=== PATIENT | female | born 1955 | race Caucasian/White ===

== ENCOUNTER 2020-02-23 08:59 | Outpatient (CLI) | payer OTHER, SELFPAY ==
--- NOTE | 2020-02-23 11:12 | N.ONRAD NP_ITS ---
Radiation Oncology Consult Patient: Mary Ellen Vanegas MR#: [id number] : 1955 Attending Physician: Vern Hahn M.D. Date of Service: 02/23/2020 Mary Ellen Vanegas was seen in consultation this morning for evaluation regarding potential breast radiotherapy for the management of her recently diagnosed breast cancer. She presented with a palpable left breast mass. Routine screening mammograms ordered on 2019 revealed an irregular mass measuring 1.6 cm x 2.2 cm in the left upper outer quadrant of the breast. Ultrasonography confirmed in the left breast within the 12 o???clock to 1 o'clock position, a 2.1 cm x 2.2 cm x 2.1 cm spiculated mass 6 cm from the nipple. A core needle biopsy performed on January 11, 2020 diagnosed an invasive, grade I ductal carcinoma. Immunohistochemical stains were positive for estrogen receptor (99%) and progesterone receptor (100%), and negative for HER-2/rani (1+). A partial mastectomy with sentinel lymph node biopsy was performed by Richard Oliva M.D. at [facility] in [place], [place] on January 27, 2020. Pathology revealed a 2.4 cm grade II invasive ductal carcinoma with an intermediate grade ductal carcinoma in situ measuring 1.2 cm of the cribriform, micropapillary, and solid subtypes. The surgical margin of the invasive carcinoma was 3 mm while the DCIS margin was less than 1 mm. Hiram lymph node biopsy harvested one lymph node that was negative for malignancy. Re-excision was performed on February 15, 2020. The final surgical margin was negative for malignancy. The tumor demonstrated an Oncotype DX breast recurrence score of 10. The patient presents for discussion regarding adjuvant breast radiotherapy. The patient's past medical history is significant for anxiety, COPD, DVT, GERD, headache, hyperlipidemia, hypertension, hypothyroidism, obstructive sleep apnea, pseudocholinesterase deficiency, and TMJ disorder. Past surgical history includes appendectomy, colonoscopy, hysterectomy, mastoidectomy (AD), meniscectomy (left knee), and tympanostomy (AD). Her obstetrical history is . Menses began at the age of [age] years old and menopause at 48 years old. I have reviewed the patient's medication profile which is available in the electronic medical record. She described an allergy to Sanctura (a muscarinic antagonists for overactive bladder). The patient's family history was remarkable for breast cancer (maternal aunt and maternal cousin). The patient was unaccompanied to this consultation. She denied a tobacco habit (quit 2000; 1/2 pack/day for 1 year) and disavowed alcohol intake. On review of systems, she did not report any constitutional complaints including fevers of unknown origin or unintentional weight loss. There were no head neck complaints including diplopia, tinnitus, epistaxis, or dysphagia. She did not report breast complaints such as masses or nipple discharge nor any enlarged lymph nodes of the neck, armpit, or groin. She denied any cardiopulmonary symptoms such as angina, cough, or palpitations. On gastrointestinal review, she reported dyspepsia but no nausea or diarrhea. There were no genitourinary complaints such as dysuria or hematuria. She did not report any musculoskeletal complaints including bone pain or muscle weakness. There were no neurological symptoms such as headaches, paresthesias, or seizures. On physical examination, the patient has an ECOG performance status of 0. Her weight was 171 lbs. The temperature was 8.17???F. The blood pressure was 143/75 mmHg. The pulse was 65 bpm and the respiratory rate of was 18. The head was normocephalic and atraumatic. Ophthalmoscopy identified bilateral red reflexes with sharp fundi visualized. Otoscopy revealed narrow external auditory canals limiting visualization of the tympanic membranes. Rhinoscopy exhibited non-inflamed turbinates. The oral cavity had moist mucous membranes and no oropharyngeal exudate was present. Dentures were noted. There was no cervical adenopathy or thyromegaly. No dominant breast masses were palpated. A scar was present in the upper-outer quadrant of the left breast. Normal fremitus was noted with resonance to percussion elicited. Bronchovesicular breath sounds were auscultated in the posterior lung miles. Cardiac sounds were regular in rate and rhythm. A holosystolic murmur was appreciated. No JVD noted. The abdomen had active bowel sounds. No tenderness to palpation. No evidence of organomegaly. No muscle weakness upon testing. No tenderness to deep palpation along the axial skeleton. Cranial nerves II through XII were intact. No sensory deficits. Normal reflexes noted. Gait was normal. In summary, the patient presented with a palpable left breast mass. Routine screening mammograms ordered on 2019 revealed an irregular mass measuring 1.6 cm x 2.2 cm in the left upper outer quadrant of the breast. Ultrasonography confirmed in the left breast within the 12 o???clock to 1 o'clock position, a 2.1 cm x 2.2 cm x 2.1 cm spiculated mass 6 cm from the nipple. A core needle biopsy performed on January 11, 2020 diagnosed an invasive, grade I ductal carcinoma. Immunohistochemical stains were positive for estrogen receptor (99%) and progesterone receptor (100%), and negative for HER-2/rani (1+). The KI-67 was 92%. A partial mastectomy with sentinel lymph node biopsy was performed by Richard Oliva M.D. at [facility] in [place], [place] on January 27, 2020. Pathology revealed a 2.4 cm grade II invasive ductal carcinoma with an intermediate grade ductal carcinoma in situ measuring 1.2 cm of the cribriform, micropapillary, and solid subtypes. The surgical margin of the invasive carcinoma was 3 mm while the DCIS margin was less than 1 mm. Hiram lymph node biopsy harvested one lymph node that harbored metastatic disease measuring 3 mm. Re-excision was performed on February 15, 2020. The final surgical margin was negative for malignancy. The tumor demonstrated an Oncotype DX Breast Recurrence Score of 10. The patient presents for discussion regarding adjuvant breast radiotherapy. I reviewed with the patient her AJCC initial pathological stage IIA (T2N1a) breast cancer. I also discussed the classic study by NSABP comparing mastectomy, lumpectomy, and lumpectomy with radiotherapy and the Early Breast Cancer Trialist Collaborative Group meta-analysis. She is aware that the addition of radiotherapy to lumpectomy provides improvement in local control and overall survival. I anticipate a five week course of breast and axillary radiotherapy which will be implemented following CT radiotherapy treatment planning. Toxicity of breast radiotherapy was also addressed. The patient has verbalized understanding would like to proceed as recommended. Signed by: Dr. Vern Hahn 03/29/2020 3:59:00 PM
[2020-02-23 12:05] LABS: Basophils # 0.1 10^3/uL (0.0-0.1); Eosinophils # 0.1 10^3/uL (0.0-0.8); Eosinophils % 1.4 %; Hematocrit 38.7 % (37.0-47.0); Hemoglobin 12.7 g/dL (11.5-15.3); Lymphocytes # 1.2 10^3/uL (0.8-4.8); Lymphocytes % 23.8 %; Mean Corpuscular HGB Conc 32.8 g/dL (30.0-36.0); Mean Corpuscular Hemoglobin 29.9 pg (28.0-34.0); Mean Corpuscular Volume 91.1 fL (81-99); Mean Platelet Volume 11.6 fL (7.4-10.4); Monocytes # 0.2 10^3/uL (0.2-0.9); Monocytes % 4.7 %; Neutrophils # 3.47 10^3/uL (1.8-7.7); Neutrophils % 67.7 %; Nucleated Red Blood Cells % 0 %; Platelet Count 225 10^3/cmm (130-400); Red Blood Count 4.25 10^6/uL (4.1-5.3); Red Cell Distribution Width 12.7 % (12.1-15.1); White Blood Count 5.1 10^3/uL (4.0-10.0)
[2020-02-23 12:31] LABS: Alanine Aminotransferase 12 U/L (0-33); Albumin Level 4.7 g/dL (3.5-5.2); Alkaline Phosphatase 64 IU/L (35-105); Anion Gap 11.2 (5-19); Aspartate Amino Transferase 13 U/L (0-32); Blood Urea Nitrogen 17 mg/dL (8-23); Calcium 9.2 mg/dL (8.5-10.5); Carbon Dioxide 29 mmol/L (22-29); Chloride 103 mmol/L (98-107); Globulin 2.1 g/dL (1.3-4.6); Glomerular Filtration Rate 100.6 mL/min (90-130); Glucose 99 mg/dL (65-115); Osmolality Calculated 290 mOsm/kg (285-295); Potassium 4.2 mmol/L (3.5-5.1); Sodium 139 mmol/L (136-145); Total Bilirubin 0.3 mg/dL (0.15-1.2); Total Protein 6.8 g/dL (6.6-8.7)
--- NOTE | 2020-02-23 18:35 | ONC CON_ITS ---
Dr. Restrepo New Patient Note Patient: Mary Ellen Vanegas Unit #: [id number]: 1955 Dicatated By: Allen Restrepo M.D.Date of Visit: Feb 23, 2020 Onc MED New Patient/Consult Referring Physician: Dr. Carola Harley M.D. Chief Complaint: Breast cancer. History of Present Illness: This is a 64 year-old woman with grade 2 invasive ductal carcinoma of the left breast, stage IIA (T2, pN1a, M0), ER/NV positive and HER-2/rani negative, and Oncotype DX score 10 (low risk). She had presented with a palpable lump in the left breast. She was not overly concerned because she has always had very lumpy breasts. Her diagnostic mammogram, though, showed an irregular mass in the left breast at the 1 to 2 o'clock position measuring 1.6 x 2.2 cm. Ultrasound showed a highly suspicious, irregular spiculated mass at the 12 to 1 o'clock position measuring 2.1 x 2.2 x 2.1 cm. There was no suspiciously enlarged axillary lymph nodes. Ultrasound-guided biopsy of the left breast mass on 01/11/2020 showed grade 1 invasive ductal carcinoma. She was then seen by Dr. Osmany Pride and she underwent left breast lumpectomy with axillary sentinel lymph node biopsy on 01/27/2020. Pathology showed grade 2 invasive ductal carcinoma measuring 2.4 cm in greatest dimension. Invasive tumor was noted to involve the cranial margin and it was 3 mm from the closest deep margin. DCIS was identified 1 mm from the deep margin. Reexcision of the cranial/medial margin showed focal residual invasive ductal carcinoma at 9 mm from the new margin. DCIS was identified less than 1 mm from the new margin. A single axillary sentinel lymph node was positive for metastatic carcinoma with a metastatic focus measuring 3 mm. There was no extranodal extension identified. The rest prognostic profile on the initial biopsy showed ER positive at 99% and NV positive at 100%. It was negative for overexpression of HER-2/rani, 1+ by IHC. Her Oncotype DX showed recurrence score of 10, low risk, corresponding to a 12% risk of distant recurrence at 9 years with adjuvant hormonal therapy. There was no apparent benefit with adjuvant chemotherapy. On 02/15/2020 she underwent reexcision lumpectomy. Pathology is not yet available. Her other medical illnesses include hypertension, hyperthyroidism, degenerative arthritis, fibromyalgia, peripheral neuropathy, osteopenia, and chronic anxiety. Her prior surgeries include hysterectomy/bilateral salpingo-oophorectomy 1997. She had smoked in the past, but never heavy, and she quit smoking at age 22. There is a family history of breast cancer affecting her great aunt on her mother side and a first cousin on her mother side. Her father of lung cancer. She is seen for further management of the breast cancer. She does complain that she has been feeling tired, she still has normal activity. ECOG score is 0. Her appetite is okay. She has had a weight loss in the range of 12 pounds. She does not have fever. Since stopping her estrogen patch she has been having hot and cold spells, flushing, and sweating. She has no shortness of breath, cough, or chest pain. She has no GI/ complaints other than frequent urination. She does report having a lot of joint and bone pain. The most significant is in her right hip, knees, feet, and hands. She does not complain of headache or dizziness. She does have some neuropathy in her feet. She has chronic anxiety. Past Medical History: Her medical history includes anxiety, degenerative joint disease, fibromyalgia, hypertension, hyperthyroidism, osteopenia, and peripheral neuropathy. Past Surgical History: She underwent ultrasound-guided biopsy of left breast mass on 01/11/2020, left breast lumpectomy with axillary sentinel lymph node biopsy on 01/27/2020, and reexcision lumpectomy on 02/15/2020. Her other surgical/procedural history consists of appendectomy, arthroscopic left knee surgery in 2018, colonoscopy in 2010, hysterectomy/bilateral salpingectomy-oophorectomy in 1997, and tubal ligation in 1977. Medications: ALPRAZolam 1 Tablet (of 0.25 mg) Oral PRN, amLODIPine Besylate 1 Tablet (of 10 mg) Oral daily, HYDROcodone-Acetaminophen 1 Tablet (of 10-325 mg) Oral PRN, Lyrica 1 Capsule (of 75 mg) Oral b.i.d., methIMAzole 1 Tablet (of 5 mg) Oral daily, Naproxen 1 Tablet (of 500 mg) Oral b.i.d. Allergies: Trospium Chloride Social History: Ms. Vanegas is . She had smoked in the past, but never heavy. She quit at age 22. She does not drink alcohol. Family History: Father of lung cancer age 63. A great aunt on her mother side of breast cancer and a first cousin on her mother side has been treated for breast cancer. A maternal uncle had colon cancer. Her maternal grandfather had heart disease and her maternal grandmother had diabetes. Review Of Symptoms: Constitutional - She has been feeling tired, but she has normal activity. Her appetite is good. Her weight is down about 12 pounds. She has not had fever. She has been having a lot hot and cold spells, flushing, and sweating since she stopped her estrogen patch 2 weeks ago. ECOG score is 0, Eyes - No change in vision, ENMT - No change in vision or hearing, she has required right ear surgery, apparently for problems related to small ear canals. No sinus congestion/drainage. No mouth sores. No sore throat or difficulty swallowing, Hematologic/Lymphatic - No abnormal bruising or bleeding, Breasts - She has always had lumpy breasts, Respiratory - No shortness of breath. No cough. No pleuritic pain or hemoptysis, Cardiovascular - No angina pain. No palpitations, Gastrointestinal - No nausea or vomiting. She has occasional heartburn. No diarrhea or constipation. No blood in the stool or black stools, Genitourinary (F) - No dysuria or hematuria. She has urinary frequency. No urgency or incontinence, Musculoskeletal - She has a lot of joint and bone pain. Her most significant pain is in her right hip, knees, feet, and hands, Integumentary - No skin rash or other skin changes, Neurologic - No headache or dizziness. She has neuropathy in her feet. No other focal neurologic symptoms, Psychiatric - She has anxiety. No depression. Lately she has been having difficulty sleeping. Vital Signs: Performed on Feb 23, 2020 10:30: 69.00 in, 170.8 lbs, 98.1 F, 65, 18, 143/75 mm(hg) (HIGH), 97 %, 0, and Performed on Feb 23, 2020 10:30: 25.223 kg/m2 (HIGH). Physical Examination: Constitutional - She appears to be in good general health, Eyes - Sclerae nonicteric. Conjunctivae clear, ENMT - No lesions noted in the oral cavity, Neck - No mass or thyromegaly, Hematologic/Lymphatic - No cervical or clavicular adenopathy, Respiratory - Lungs are clear with good air movement bilaterally, Cardiovascular - Heart rhythm is regular. There is a I/ systolic murmur at the aortic area. There is no gallop or rub noted, Breasts - There are multiple areas of nodularity in both breasts, the right more prominent than the left. The lumpectomy incision in the left breast appears well-healed. There is no axillary adenopathy, Abdomen - Soft and non-tender. Liver and spleen are not enlarged. There is no abdominal mass or ascites noted and there is no inguinal adenopathy, Back/Spine - No spine or CVA tenderness noted, Extremities - Slight edema. Dorsalis pedis pulses are palpable bilaterally, Integumentary - No rashes. No suspicious skin lesions noted, Neurologic - No focal neurologic deficits noted. Impression: 1. Patient with grade 2 invasive ductal carcinoma of the left breast, stage IIA (T2, pN1a, M0), ER/NV positive and HER-2/rani negative. Her Oncotype DX score was 10 (low risk), corresponding to a 12% risk of distant recurrence at 9 years with adjuvant hormonal therapy. There was no predicted benefit with adjuvant chemotherapy. 2. She underwent ultrasound directed needle biopsy of the left breast on 01/11/2020 followed by left breast lumpectomy/axillary sentinel lymph node biopsy on 01/27/2020 and by reexcision lumpectomy on 02/15/2020. Her other medical illnesses include: 3. Hypertension. 4. Hyperthyroidism. 5. Degenerative arthritis. 6. Peripheral neuropathy. 7. Osteopenia. 8. Chronic anxiety. Plan: The pathology findings were reviewed with the patient. We discussed the clinic implications. She has grade 2 invasive ductal carcinoma of the left breast which is ER/NV positive and HER-2/rani negative. It is a T2 primary lesion with involvement in 1 axillary sentinel lymph node. The Oncotype DX is low risk. Under the current system her disease is stage IIA. With the Oncotype DX showing no predicted benefit with adjuvant chemotherapy, she is advised to proceed with radiation to the left breast, following which she will begin adjuvant hormonal therapy. Her hormonal treatment may be problematic, as she does have significant pre-existing joint pain, and she may not tolerate aromatase inhibitor therapy. She also is having significant estrogen withdrawal symptoms after stopping her hormone replacement therapy, and I am going to go ahead and have her start venlafaxine ER 75 mg daily. She will have baseline CBC and comprehensive metabolic profile today. She also will need baseline reassessment of bone health prior to starting treatment with an aromatase inhibitor. I will just plan to see her again after she completes her radiation. Signed By: Allen Restrepo M.D. <<Signature on File>>
== END 2020-02-23 09:00 | disposition home or self-care (01) ==
PROVIDERS: Absent Provider Radiology Radiation Oncology; PCP Internal Medicine; Visit Provider Internal Medicine Medical Oncology
DX: C50.412 Malignant neoplasm of upper-outer quadrant of left female breast (principal); C77.3 Secondary and unspecified malignant neoplasm of axilla and upper limb lymph nodes; Z17.0 Estrogen receptor positive status [ER+]; R23.2 Flushing; I10 Essential (primary) hypertension; E05.90 Thyrotoxicosis, unspecified without thyrotoxic crisis or storm; M19.90 Unspecified osteoarthritis, unspecified site; G62.9 Polyneuropathy, unspecified; M85.80 Other specified disorders of bone density and structure, unspecified site; F41.9 Anxiety disorder, unspecified; Z87.891 Personal history of nicotine dependence
CPT/HCPCS: 36415; 80053; 85025; 99205; 99215

== ENCOUNTER 2020-03-31 05:44 | Outpatient (RCR) | payer OTHER, SELFPAY ==
--- NOTE | 2020-03-14 | CT_ITS ---
Radiation Therapy Planning CT images; total exam DLP: 552.42 mGy-cm MTDD
--- NOTE | 2020-03-22 16:05 | ONCRAD TMN_ITS ---
Radiation Oncology Weekly Treatment Management Patient: Mary Ellen Vanegas MR#: [id number] : 1955> Attending Physician: Vern Hahn M.D. Date of Service: 03/22/2020 Referring Physician : Carola Harley M.D. Mary Ellen Vanegas is a 65 year-old white female diagnosed with a pathological stage IIA (T2N1a) ductal carcinoma of the upper-outer quadrant of the left breast. Immunohistochemical stains were positive for estrogen receptor (99%) and progesterone receptor (100%), and negative for HER-2/rani (1+). The tumor demonstrated an Oncotype DX Breast Recurrence Score of 10. She has received 6 Gy of a prescribed 50 Gy delivered with a 3D conformal radiotherapy plan utilizing opposed tangential portal miles matched to supraclavicular fossa/PAB miles. Upon review of systems, she denied any breast complaints to radiotherapy. On physical examination, the patient weighed 174 lbs. Her temperature was 98.6 ???F with a blood pressure of 148/79 mmHg. Her pulse was 89 bpm and her respiratory rate was 20. There was no erythema within the treatment miles of the left breast. Continue breast and regional lymph node irradiation as planned. Signed by: Dr. Vern Hahn 03/29/2020 4:04:24 PM
--- NOTE | 2020-03-29 16:14 | ONCRAD TMN_ITS ---
Treatment Management Note Patient Name: Mary Ellen Vanegas Date of : 1955 Date of Service: 03/29/2020 Attending Physician: Vern Hahn M.D. Mary Ellen Vanegas is a 65 year-old white female diagnosed with a pathological stage IIA (T2N1a) ductal carcinoma of the upper-outer quadrant of the left breast. Immunohistochemical stains were positive for estrogen receptor (99%) and progesterone receptor (100%), and negative for HER-2/rani (1+). The tumor demonstrated an Oncotype DX Breast Recurrence Score of 10. She has received 14 Gy of a prescribed 50 Gy delivered with a 3D conformal radiotherapy plan utilizing opposed tangential portal miles matched to supraclavicular fossa/PAB miles. Upon review of systems, she denied any breast complaints to radiotherapy but has nausea since increasing Effexor dose to 75 mg. On physical examination, the patient weighed 171 lbs. Her temperature was 98.8 ???F with a blood pressure of 127/76 mmHg. Her pulse was 78 bpm and her respiratory rate was 18. There was no erythema within the treatment miles of the left breast. Continue left breast and regional lymph node irradiation as prescribed. I will prescribe Zofran prn. May decrease Effexor to 35 mg as tolerated. Signed by: Dr. Vern Hahn 03/29/2020 4:13:20 PM
== END 2020-03-31 23:59 | disposition home or self-care (01) ==
LOC: ONCMED 05:44
PROVIDERS: PCP Internal Medicine; Visit Provider Radiology Radiation Oncology
DX: Z51.0 Encounter for antineoplastic radiation therapy (principal); C50.412 Malignant neoplasm of upper-outer quadrant of left female breast; Z17.0 Estrogen receptor positive status [ER+]
CPT/HCPCS: 77290; 77295; 77300; 77334; 77336; 77387; 77412; Q9967

== ENCOUNTER 2020-04-25 05:47 | Outpatient (RCR) | payer OTHER, SELFPAY ==
--- NOTE | 2020-04-05 16:04 | ONCRAD TMN_ITS ---
Radiation Oncology Treatment Management Note Patient Name: Mary Ellen Vanegas Date of : 1955 Date of Service: 04/05/2020 Attending Physician: Vern Hahn M.D. Mary Ellen Vanegas is a 65 year-old white female diagnosed with a pathological stage IIA (T2N1a) ductal carcinoma of the upper-outer quadrant of the left breast. Immunohistochemical stains were positive for estrogen receptor (99%) and progesterone receptor (100%), and negative for HER-2/rani (1+). The tumor demonstrated an Oncotype DX Breast Recurrence Score of 10. She has received 22 Gy of a prescribed 50 Gy delivered with a 3D conformal radiotherapy plan utilizing opposed tangential portal miles matched to supraclavicular fossa/PAB miles. Upon review of systems, she denied any breast complaints to radiotherapy. On physical examination, the patient weighed 175 lbs. Her temperature was 99.2 ???F with a blood pressure of 126/76 mmHg. Her pulse was 72 bpm and her respiratory rate was 18. There was no erythema within the treatment miles of the left breast. Continue left breast and regional lymph node irradiation as planned. Signed by: Dr. Vern Hahn 04/05/2020 4:03:21 PM
--- NOTE | 2020-04-12 16:01 | ONCRAD TMN_ITS ---
Radiation Oncology Treatment Management Note Patient Name: Mary Ellen Vanegas Date of : 1955 Date of Service: 04/12/2020 Attending Physician: Vern Hahn M.D. Mary Ellen Vanegas is a 65 year-old white female diagnosed with a pathological stage IIA (T2N1a) ductal carcinoma of the upper-outer quadrant of the left breast. Immunohistochemical stains were positive for estrogen receptor (99%) and progesterone receptor (100%), and negative for HER-2/rani (1+). The tumor demonstrated an Oncotype DX Breast Recurrence Score of 10. She has received 32 Gy of a prescribed 50 Gy delivered with a 3D conformal radiotherapy plan utilizing opposed tangential portal miles matched to supraclavicular fossa/PAB miles. Upon review of systems, she described fatigue. On physical examination, the patient weighed 176 lbs. Her temperature was 98.8 ???F with a blood pressure of 141/86 mmHg. Her pulse was 69 bpm and her respiratory rate was 16. There was a grade I dermatitis within the treatment miles of the left breast. Continue left breast and regional lymph node irradiation as prescribed. Signed by: Dr. Vern Hahn 04/12/2020 4:00:15 PM
--- NOTE | 2020-04-19 16:14 | ONCRAD TMN_ITS ---
Radiation Oncology Treatment Management Note Patient Name: Mary Ellen Vanegas Date of : 1955 Date of Service: 04/19/2020 Attending Physician: Vern Hahn M.D. Mary Ellen Vanegas is a 65 year-old white female diagnosed with a pathological stage IIA (T2N1a) ductal carcinoma of the upper-outer quadrant of the left breast. Immunohistochemical stains were positive for estrogen receptor (99%) and progesterone receptor (100%), and negative for HER-2/rani (1+). The tumor demonstrated an Oncotype DX Breast Recurrence Score of 10. She has received 42 Gy of a prescribed 50 Gy delivered with a 3D conformal radiotherapy plan utilizing opposed tangential portal miles matched to supraclavicular fossa/PAB miles. Upon review of systems, she continued to report fatigue. On physical examination, the patient weighed 174 lbs. Her temperature was 98.5 ???F with a blood pressure of 139/79 mmHg. Her pulse was 69 bpm and her respiratory rate was 16. There was a grade I dermatitis within the treatment miles of the left breast. Continue left breast and regional lymph node irradiation as planned. Signed by: Dr. Vern Hahn 04/19/2020 4:13:04 PM
== END 2020-05-01 23:59 | disposition home or self-care (01) ==
LOC: ONCMED 05:47
PROVIDERS: PCP Internal Medicine; Visit Provider Radiology Radiation Oncology
DX: Z51.0 Encounter for antineoplastic radiation therapy (principal); C50.412 Malignant neoplasm of upper-outer quadrant of left female breast; Z17.0 Estrogen receptor positive status [ER+]
CPT/HCPCS: 77336; 77387; 77412

== ENCOUNTER 2020-05-25 05:32 | Outpatient (RCR) | payer OTHER, SELFPAY ==
--- NOTE | 2020-05-05 07:40 | ONC FU_ITS ---
Dr. Restrepo Patient Follow-Up Note Patient: Mary Ellen Vanegas Unit #: [id number]: 1955 Dicatated By: Allen Restrepo M.D.Date of Visit:May 04, 2020 Onc Med Follow-up/Prog Note Chief Complaint: Breast cancer. History of Present Illness: This is a 65 year-old woman with grade 2 invasive ductal carcinoma of the left breast, stage IIA (T2, pN1a, M0), ER/MO positive and HER-2/rani negative. Oncotype DX score was low risk with recurrence score 10. She had presented with a palpable lump in the left breast. She was not overly concerned because she has always had very lumpy breasts. Her diagnostic mammogram, though, showed an irregular mass in the left breast at the 1 to 2 o'clock position measuring 1.6 x 2.2 cm. Ultrasound showed a highly suspicious, irregular spiculated mass at the 12 to 1 o'clock position measuring 2.1 x 2.2 x 2.1 cm. There was no suspiciously enlarged axillary lymph nodes. Ultrasound-guided biopsy of the left breast mass on 01/11/2020 showed grade 1 invasive ductal carcinoma. She was then seen by Dr. Oliva and she underwent left breast lumpectomy with axillary sentinel lymph node biopsy on 01/27/2020. Pathology showed grade 2 invasive ductal carcinoma measuring 2.4 cm in greatest dimension. Invasive tumor was noted to involve the cranial margin and it was 3 mm from the closest deep margin. DCIS was identified 1 mm from the deep margin. Reexcision of the cranial/medial margin showed focal residual invasive ductal carcinoma at 9 mm from the new margin. DCIS was identified less than 1 mm from the new margin. A single axillary sentinel lymph node was positive for metastatic carcinoma with a metastatic focus measuring 3 mm. There was no extranodal extension identified. The rest prognostic profile on the initial biopsy showed ER positive at 99% and MO positive at 100%. It was negative for overexpression of HER-2/rani, 1+ by IHC. Her Oncotype DX showed recurrence score of 10, low risk, corresponding to a 12% risk of distant recurrence at 9 years with adjuvant hormonal therapy. There was no apparent benefit with adjuvant chemotherapy. On 02/15/2020 she underwent reexcision lumpectomy. Pathology showed biopsy site changes and focal atypical lobular hyperplasia but with no invasive carcinoma or ductal carcinoma in situ identified. I had seen her initially on 02/23/2020. With a low risk Oncotype score adjuvant chemotherapy was not recommended. She then underwent radiation to the left breast. 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 Her other medical illnesses include hypertension, hyperthyroidism, degenerative arthritis, fibromyalgia, peripheral neuropathy, osteopenia, and chronic anxiety. Her prior surgeries include hysterectomy/bilateral salpingo-oophorectomy 1997. She had smoked in the past, but never heavy, and she quit smoking at age 22. There is a family history of breast cancer affecting her great aunt on her mother side and a first cousin on her mother side. Her father of lung cancer. She is seen for a follow-up visit. She is still feeling a little tired following the radiation, but she is still working half days. Her ECOG score is 1. She has good appetite. She has not had fever. She does have hot flashes, but those have improved somewhat with venlafaxine. She has no shortness of breath, cough, or chest pain. She has no GI or complaints. She does have significant joint pain, including her hands, knees, and feet. She also has neck and back pain. She has headaches off and on. She sometimes has dizziness. She has neuropathy in her feet, which is managed with Lyrica. She does have some anxiety, but that also has improved. Medications: ALPRAZolam 1 Tablet (of 0.25 mg) Oral PRN, amLODIPine Besylate 1 Tablet (of 10 mg) Oral daily, HYDROcodone-Acetaminophen 1 Tablet (of 10-325 mg) Oral PRN, Lyrica 1 Capsule (of 75 mg) Oral b.i.d., methIMAzole 1 Tablet (of 5 mg) Oral daily, Naproxen 1 Tablet (of 500 mg) Oral b.i.d. Allergies: Trospium Chloride Vital Signs: Performed on May 04, 2020 15:37 Height - 69.00 in Weight - 176.6 lbs (HIGH) BSA - 1.96 sq.m BMI - 26.08 Temperature - 98.4 F Pulse - 77 /min Respiration - 16 /min BP - 133/80 mm(hg) O2 Sat - 97 % Pain - 0 Physical Examination: Constitutional - She looks good generally, Eyes - Sclerae nonicteric. Conjunctivae clear, ENMT - No lesions noted in the oral cavity, Hematologic/Lymphatic - No cervical or clavicular adenopathy, Respiratory - Lungs are clear with good air movement bilaterally, Cardiovascular - Heart rhythm is regular. There is a II/ systolic murmur. There is no gallop or rub noted, Breasts - The left breast shows residual erythema with the radiation dermatitis, but it does appear to be resolving. There is no axillary adenopathy, Abdomen - Soft. Liver and spleen are not enlarged. There is no abdominal mass or ascites noted and there is no inguinal adenopathy, Extremities - No edema, Neurologic - No focal neurologic deficits noted. Lab/Imaging: Test performed on Feb 23, 2020 11:50 Sodium 139 mmol/L Potassium 4.2 mmol/L Chloride 103 mmol/L CO2 29 mmol/L Anion Gap 11.2 BUN 17 mg/dL Creatinine 0.6 mg/dL Cr Clearance (Est) 115.8500 mL/min eGFR 100.6 mL/min Glucose 99 mg/dL Osmolality - Calculated 290 mOsm/kg Calcium 9.2 mg/dL Protein, Total 6.8 g/dL Albumin 4.7 g/dL Globulin 2.1 g/dL Bilirubin, Total 0.3 mg/dL ALT (SGPT) 12 U/L AST (SGOT) 13 U/L Alkaline Phosphatase 64 IU/L WBC 5.1 10 3/uL RBC 4.25 10 6/uL HGB 12.7 g/dL HCT 38.7 % MCV 91.1 fL MCH 29.9 pg MCHC 32.8 g/dL RDW 12.7 % Platelet Count 225 10 3/cmm MPV 11.6 fL Neutrophils 3.47 10 3/uL Lymphocytes 1.2 10 3/uL Monocytes 0.2 10 3/uL Eosinophils 0.1 10 3/uL Basophils 0.1 10 3/uL Neutrophil % 67.7 % Lymphocyte % 23.8 % Monocyte % 4.7 % Eosinophil % 1.4 % Basophils % 1.0 % NRBC % 0 % Problem List: 1. Grade 2 invasive ductal carcinoma of the left breast, stage IIA (T2, pN1a, M0), ER/MO positive and HER-2/rani negative. Her Oncotype DX score was 10 (low risk), corresponding to a 12% risk of distant recurrence at 9 years with adjuvant hormonal therapy. There was no predicted benefit with adjuvant chemotherapy. 2. She underwent ultrasound directed needle biopsy of the left breast on 01/11/2020 followed by left breast lumpectomy/axillary sentinel lymph node biopsy on 01/27/2020 and by reexcision lumpectomy on 02/15/2020. 3. Hypertension. 4. Hyperthyroidism. 5. Degenerative arthritis. 6. Peripheral neuropathy. 7. Osteopenia. 8. Chronic anxiety. Problems Addressed with this Encounter and Plan: 1. Grade 2 invasive ductal carcinoma of the left breast, stage IIA (T2, pN1a, M0), ER/MO positive and HER-2/rani negative. Her Oncotype DX score was 10 (low risk), corresponding to a 12% risk of distant recurrence at 9 years with adjuvant hormonal therapy. She underwent ultrasound directed needle biopsy of the left breast on 01/11/2020 followed by left breast lumpectomy/axillary sentinel lymph node biopsy on 01/27/2020 and by reexcision lumpectomy on 02/15/2020. With a low risk Oncotype score adjuvant chemotherapy was not recommended. 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 She still has some fatigue following completion of the radiation, but her energy is improving and the radiation dermatitis now appears to be resolving. She has advised now to proceed with adjuvant hormonal therapy with anastrozole 1 mg daily. We discussed the fact that anastrozole may cause or worsen osteoporosis and that it also may cause musculoskeletal pain as a side effect. This may be a significant issue for her with her underlying degenerative arthritis and fibromyalgia. Tamoxifen will be an alternative if she is not able to tolerate an aromatase inhibitor. I will have her defer starting treatment for another couple of weeks to allow additional time to recover from the radiation. 2. She has osteopenia. She will be following up with her rotary drill operator this month and she will have a repeat Dexa scan with that visit. She will have further treatment for bone health as indicated. Signed By: Allen Restrepo M.D. <<Signature on File>>
--- NOTE | 2020-05-30 22:55 | ONC FU_ITS ---
[facility] Patient Note Patient: Mary Ellen Vanegas Unit #: [id number]: 1955 Dictated By: Patrick CardozaDate of Visit: May 25, 2020 Onc MED Follow-Up/Prog Note Chief Complaint: Breast cancer. History of Present Illness: Ms Vanegas is a 65 year-old woman with grade 2 invasive ductal carcinoma of the left breast, stage IIA (T2, pN1a, M0), ER/HI positive and HER-2/rani negative. Oncotype DX score was low risk with recurrence score 10. She had presented with a palpable lump in the left breast. She was not overly concerned because she has always had very lumpy breasts. Her diagnostic mammogram, though, showed an irregular mass in the left breast at the 1 to 2 o'clock position measuring 1.6 x 2.2 cm. Ultrasound showed a highly suspicious, irregular spiculated mass at the 12 to 1 o'clock position measuring 2.1 x 2.2 x 2.1 cm. There was no suspiciously enlarged axillary lymph nodes. Ultrasound-guided biopsy of the left breast mass on 01/11/2020 showed grade 1 invasive ductal carcinoma. She was then seen by Dr. Oliva and she underwent left breast lumpectomy with axillary sentinel lymph node biopsy on 01/27/2020. Pathology showed grade 2 invasive ductal carcinoma measuring 2.4 cm in greatest dimension. Invasive tumor was noted to involve the cranial margin and it was 3 mm from the closest deep margin. DCIS was identified 1 mm from the deep margin. Reexcision of the cranial/medial margin showed focal residual invasive ductal carcinoma at 9 mm from the new margin. DCIS was identified less than 1 mm from the new margin. A single axillary sentinel lymph node was positive for metastatic carcinoma with a metastatic focus measuring 3 mm. There was no extranodal extension identified. The rest prognostic profile on the initial biopsy showed ER positive at 99% and HI positive at 100%. It was negative for overexpression of HER-2/rani, 1+ by IHC. Her Oncotype DX showed recurrence score of 10, low risk, corresponding to a 12% risk of distant recurrence at 9 years with adjuvant hormonal therapy. There was no apparent benefit with adjuvant chemotherapy. On 02/15/2020 she underwent reexcision lumpectomy. Pathology showed biopsy site changes and focal atypical lobular hyperplasia but with no invasive carcinoma or ductal carcinoma in situ identified. Dr Restrepo had seen her initially on 02/23/2020. With a low risk Oncotype score adjuvant chemotherapy was not recommended. She then underwent radiation to the left breast. 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 Her other medical illnesses include hypertension, hyperthyroidism, degenerative arthritis, fibromyalgia, peripheral neuropathy, osteopenia, and chronic anxiety. Her prior surgeries include hysterectomy/bilateral salpingo-oophorectomy 1997. She had smoked in the past, but never heavy, and she quit smoking at age 22. There is a family history of breast cancer affecting her great aunt on her mother side and a first cousin on her mother side. Her father of lung cancer. Ms. Vanegas is here today for follow-up. She states she is feeling some better but still not back to her normal. She has not started anastrozole yet. She states she is starting to walk a little bit for exercise and is gradually building this up. She states that her strength is getting better and her bone and joint pain is improving but is still present. She states her skin has healed well from radiation. She denies any shortness of breath or orthopnea. She denies chest pain or palpitations. She states her bowel and bladder habits are normal for her. She denies any nausea or vomiting. She denies any fever or chills. She states she just continues to be really tired but that is getting better day by day. She has good appetite. She does have hot flashes, but those have improved somewhat with venlafaxine. She has chronic neck and back pain. She has neuropathy in her feet, which is managed with Lyrica. Her ECOG score is 1. Past Medical History: Anxiety Degenerative joint disease Fibromyalgia Hypertension Hyperthyroidism Osteopenia Peripheral neuropathy Past Surgical History: Appendectomy Re-excision lumpectomy in 2019 Left breast lumpectomy with axillary sentinel lymph node biopsy in 2019 Ultrasound directed biopsy of left breast mass in 2019 Arthroscopic left knee surgery in 2018 Colonoscopy in 2010 Hysterectomy/bilateral salpingectomy-oophorectomy in 1997 Tubal ligation in 1977 Allergies: Trospium Chloride Medications: ALPRAZolam 1 Tablet (of 0.25 mg) Oral PRN amLODIPine Besylate 1 Tablet (of 10 mg) Oral daily HYDROcodone-Acetaminophen 1 Tablet (of 10-325 mg) Oral PRN Lyrica 1 Capsule (of 75 mg) Oral b.i.d. methIMAzole 1 Tablet (of 5 mg) Oral daily Naproxen 1 Tablet (of 500 mg) Oral b.i.d. Family History: Ms. Vanegas's mother is alive. Ms. Vanegas's father at age 63: lung cancer. Father of lung cancer age 63. A great aunt on her mother side of breast cancer and a first cousin on her mother side has been treated for breast cancer. A maternal uncle had colon cancer. Her maternal grandfather had heart disease and her maternal grandmother had diabetes. Social History: Ms. Vanegas is . Ms. Vanegas quit smoking 43 years ago but had smoked for 3 years. She has no history of drinking. She had smoked in the past, but never heavy. She quit smoking at age 22. She does not drink alcohol. Review Of Symptoms: Constitutional Denies fevers, chills, night sweats, excessive fatigue or weight loss. Fatigue slowly improving. Allergic/Immunologic No reactions. Eyes Denies significant visual changes. No diplopia. No amaurosis. ENMT Denies changes in hearing, sore throat, mouth sores, difficulty or changes in swallowing ability, and/or sinus drainage. Hematologic/Lymphatic Denies easy bruising or bleeding. The patient denies any tender or palpable lymph nodes. Breasts Skin has healed well, no concerns. Respiratory Denies dyspnea on exertion, chest pain, cough or hemoptysis. Denies orthopnea. Cardiovascular Denies anginal chest pain, palpitations or orthopnea. Gastrointestinal Denies nausea, vomiting, diarrhea, GI bleeding, or constipation. Denies change in bowel habits and/or stool color, no heartburn or early satiety. Genitourinary (F) No hematuria, hesitancy, incontinence, vaginal bleeding, discharge or other problems with urination. Musculoskeletal Denies joint pain, swelling or redness. No decreased range of motion. Integumentary Denies chronic rashes, inflammation, ulcerations or skin changes. Neurologic Denies headache, blurred vision, and no areas of focal weakness or numbness. Normal gait. No sensory problems. Psychiatric Denies insomnia, depression, jacques or mood swings. Vital Signs: Performed on May 25, 2020 15:31 Height - 69.00 in Weight - 178.8 lbs (HIGH) BSA - 1.97 sq.m BMI - 26.40 Temperature - 98.1 F (LOW) Pulse - 83 /min Respiration - 18 /min BP - 140/77 mm(hg) O2 Sat - 97 % Pain - 0 Fatigue - 6,1 - No physically strenuous activity, but ambulatory and able to carry out light or sedentary work (e.g. office work, light house work). (ECOG) Physical Examination: Constitutional Alert, oriented, no acute distress. Skin pink, warm and dry. Head Normocephalic; atraumatic. Eyes Conjunctivae and sclerae are clear and without icterus. Pupils are reactive and equal. Respiratory Lungs are clear to auscultation without rhonchi or wheezing. Cardiovascular Regular rate and rhythm of heart without murmurs,clicks, gallops or rubs. Back/Spine Non-tender to palpation. Extremities No visible deformities, no cyanosis, clubbing or edema. Musculoskeletal No tenderness or swelling, normal range of motion without obvious weakness. Integumentary No rashes or lesions. Neurologic No sensory or motor deficits, normal cerebellar function, normal gait. Psychiatric Alert and oriented times three. Coherent speech. Verbalizes understanding of our discussions today. Laboratory:Test performed on Feb 23, 2020 11:50 Sodium 139 mmol/L Potassium 4.2 mmol/L Chloride 103 mmol/L CO2 29 mmol/L Anion Gap 11.2 BUN 17 mg/dL Creatinine 0.6 mg/dL Cr Clearance (Est) 115.8500 mL/min eGFR 100.6 mL/min Glucose 99 mg/dL Osmolality - Calculated 290 mOsm/kg Calcium 9.2 mg/dL Protein, Total 6.8 g/dL Albumin 4.7 g/dL Globulin 2.1 g/dL Bilirubin, Total 0.3 mg/dL ALT (SGPT) 12 U/L AST (SGOT) 13 U/L Alkaline Phosphatase 64 IU/L WBC 5.1 10 3/uL RBC 4.25 10 6/uL HGB 12.7 g/dL HCT 38.7 % MCV 91.1 fL MCH 29.9 pg MCHC 32.8 g/dL RDW 12.7 % Platelet Count 225 10 3/cmm MPV 11.6 fL Neutrophils 3.47 10 3/uL Lymphocytes 1.2 10 3/uL Monocytes 0.2 10 3/uL Eosinophils 0.1 10 3/uL Basophils 0.1 10 3/uL Neutrophil % 67.7 % Lymphocyte % 23.8 % Monocyte % 4.7 % Eosinophil % 1.4 % Basophils % 1.0 % NRBC % 0 % Impression: 1. Grade 2 invasive ductal carcinoma of the left breast, stage IIA (T2, pN1a, M0), ER/HI positive and HER-2/rani negative. Her Oncotype DX score was 10 (low risk), corresponding to a 12% risk of distant recurrence at 9 years with adjuvant hormonal therapy. There was no predicted benefit with adjuvant chemotherapy. 2. She underwent ultrasound directed needle biopsy of the left breast on 01/11/2020 followed by left breast lumpectomy/axillary sentinel lymph node biopsy on 01/27/2020 and by reexcision lumpectomy on 02/15/2020. 3. Hypertension. 4. Hyperthyroidism. 5. Degenerative arthritis. 6. Peripheral neuropathy. 7. Osteopenia. 8. Chronic anxiety. Plan: PROBLEMS ADDRESSED TODAY 1. Grade 2 invasive ductal carcinoma of the left breast, stage IIA (T2, pN1a, M0), ER/HI positive and HER-2/rani negative. A. Her Oncotype DX score was 10 (low risk), corresponding to a 12% risk of distant recurrence at 9 years with adjuvant hormonal therapy. She underwent ultrasound directed needle biopsy of the left breast on 01/11/2020 followed by left breast lumpectomy/axillary sentinel lymph node biopsy on 01/27/2020 and by reexcision lumpectomy on 02/15/2020. B. With a low risk Oncotype score adjuvant chemotherapy was not recommended. 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 She has now recovered from the radiation dermatitis. C. She still has some fatigue following completion of the radiation, but her energy is improving. D. She has been advised to pursue adjuvant hormonal therapy with anastrozole 1 mg daily. Given the fact that it can worsen or cause osteoporosis and musculoskeletal pain, she has not yet started this as she was trying to recover from radiation. She also has underlying degenerative arthritis and fibromyalgia. She states she is feeling better than her last visit but would like an additional couple of weeks to try to fully recover from the radiation. Tamoxifen will be an alternative if she is not able to tolerate an aromatase inhibitor. 2. She has osteopenia. She will be following up with her product handler this month and she will have a repeat Dexa scan with that visit. She will have further treatment for bone health as indicated. The appointment with her product handler has been delayed due to recent increment weather but has been rescheduled. She is aware that she will need her DEXA scan at that time. 3. Follow-up plan A. We will plan to see her back in 2 weeks with CBC CMP as her last labs were January 2020. Her thyroid has been normal. She will have this followed with product handler. B. She is advised that if her performance status has not improved enough to feel comfortable starting the anastrozole that we will postpone her appointment out for another 2 weeks at her request. C. Ms. Vanegas was encouraged to contact us in interim if questions or problems arise. Signed By: Patrick Cardoza-, AOCNP Allen Restrepo MD <<Signature on File>>
== END 2020-05-29 23:59 | disposition home or self-care (01) ==
LOC: ONCMED 05:32
PROVIDERS: PCP Internal Medicine; Visit Provider Nurse Practitioner
DX: C50.812 Malignant neoplasm of overlapping sites of left female breast (principal); Z17.0 Estrogen receptor positive status [ER+]; I10 Essential (primary) hypertension; E05.00 Thyrotoxicosis with diffuse goiter without thyrotoxic crisis or storm; M19.90 Unspecified osteoarthritis, unspecified site; G62.9 Polyneuropathy, unspecified; M85.80 Other specified disorders of bone density and structure, unspecified site; F41.9 Anxiety disorder, unspecified; Z79.811 Long term (current) use of aromatase inhibitors
CPT/HCPCS: 99214

== ENCOUNTER 2020-06-09 06:17 | Outpatient (RCR) | payer OTHER, SELFPAY ==
[2020-06-09 14:31] LABS: Basophils # 0.1 10^3/uL (0.0-0.1); Basophils % 1.1 %; Eosinophils # 0.1 10^3/uL (0.0-0.8); Eosinophils % 2.4 %; Hematocrit 33.6 % (37.0-47.0); Hemoglobin 11.2 g/dL (11.5-15.3); Lymphocytes # 0.7 10^3/uL (0.8-4.8); Lymphocytes % 12.9 %; Mean Corpuscular HGB Conc 33.3 g/dL (30.0-36.0); Mean Corpuscular Hemoglobin 30.9 pg (28.0-34.0); Mean Corpuscular Volume 92.6 fL (81-99); Mean Platelet Volume 10.7 fL (7.4-10.4); Monocytes # 0.4 10^3/uL (0.2-0.9); Monocytes % 6.9 %; Neutrophils % 76.5 %; Nucleated Red Blood Cells % 0 %; Platelet Count 225 10^3/cmm (130-400); Red Blood Count 3.63 10^6/uL (4.1-5.3); Red Cell Distribution Width 12.3 % (12.1-15.1); White Blood Count 5.4 10^3/uL (4.0-10.0)
[2020-06-09 14:49] LABS: Alanine Aminotransferase 14 U/L (0-33); Albumin Level 3.8 g/dL (3.5-5.2); Alkaline Phosphatase 65 IU/L (35-105); Aspartate Amino Transferase 13 U/L (0-32); Blood Urea Nitrogen 16 mg/dL (8-23); Calcium 8.8 mg/dL (8.5-10.5); Carbon Dioxide 30 mmol/L (22-29); Chloride 101 mmol/L (98-107); Globulin 2.1 g/dL (1.3-4.6); Glucose 91 mg/dL (65-115); Osmolality Calculated 285 mOsm/kg (285-295); Sodium 137 mmol/L (136-145); Total Bilirubin 0.3 mg/dL (0.15-1.2); Total Protein 5.9 g/dL (6.6-8.7)
--- NOTE | 2020-06-09 16:04 | ONC FU_ITS ---
Dr. Restrepo Patient Follow-Up Note Patient: Mary Ellen Vanegas Unit #: [id number]: 1955 Dicatated By: Allen Rsetrepo M.D.Date of Visit:Jun 09, 2020 Onc Med Follow-up/Prog Note Chief Complaint: Breast cancer. History of Present Illness: This is a 65 year-old woman with grade 2 invasive ductal carcinoma of the left breast, stage IIA (T2, pN1a, M0), ER/WI positive and HER-2/rani negative. Oncotype DX score was low risk with recurrence score 10. She had presented with a palpable lump in the left breast. She was not overly concerned because she has always had very lumpy breasts. Her diagnostic mammogram, though, showed an irregular mass in the left breast at the 1 to 2 o'clock position measuring 1.6 x 2.2 cm. Ultrasound showed a highly suspicious, irregular spiculated mass at the 12 to 1 o'clock position measuring 2.1 x 2.2 x 2.1 cm. There was no suspiciously enlarged axillary lymph nodes. Ultrasound-guided biopsy of the left breast mass on 01/11/2020 showed grade 1 invasive ductal carcinoma. She was then seen by Dr. Oliva and she underwent left breast lumpectomy with axillary sentinel lymph node biopsy on 01/27/2020. Pathology showed grade 2 invasive ductal carcinoma measuring 2.4 cm in greatest dimension. Invasive tumor was noted to involve the cranial margin and it was 3 mm from the closest deep margin. DCIS was identified 1 mm from the deep margin. Reexcision of the cranial/medial margin showed focal residual invasive ductal carcinoma at 9 mm from the new margin. DCIS was identified less than 1 mm from the new margin. A single axillary sentinel lymph node was positive for metastatic carcinoma with a metastatic focus measuring 3 mm. There was no extranodal extension identified. The rest prognostic profile on the initial biopsy showed ER positive at 99% and WI positive at 100%. It was negative for overexpression of HER-2/rani, 1+ by IHC. Her Oncotype DX showed recurrence score of 10, low risk, corresponding to a 12% risk of distant recurrence at 9 years with adjuvant hormonal therapy. There was no apparent benefit with adjuvant chemotherapy. On 02/15/2020 she underwent reexcision lumpectomy. Pathology showed biopsy site changes and focal atypical lobular hyperplasia but with no invasive carcinoma or ductal carcinoma in situ identified. I had seen her initially on 02/23/2020. With a low risk Oncotype score adjuvant chemotherapy was not recommended. She then underwent radiation to the left breast. 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 Her other medical illnesses include hypertension, hyperthyroidism, degenerative arthritis, fibromyalgia, peripheral neuropathy, osteopenia, and chronic anxiety. Her prior surgeries include hysterectomy/bilateral salpingo-oophorectomy 1997. She had smoked in the past, but never heavy, and she quit smoking at age 22. There is a family history of breast cancer affecting her great aunt on her mother side and a first cousin on her mother side. Her father of lung cancer. She is seen for a follow-up visit. I had seen him for a follow-up visit on 05/04/2020. At that time I had recommended adjuvant hormonal therapy with anastrozole for 5 years, but I did have her delay starting the treatment, she was still recovering from radiation. She is feeling better now. She still has some fatigue and she is having some limitation in her activity due to right hip and right knee pain. She recently had injections at both sites, but without much benefit. She has no other significant complaints. Medications: ALPRAZolam 1 Tablet (of 0.25 mg) Oral PRN, amLODIPine Besylate 1 Tablet (of 10 mg) Oral daily, HYDROcodone-Acetaminophen 1 Tablet (of 10-325 mg) Oral PRN, Lyrica 1 Capsule (of 75 mg) Oral b.i.d., methIMAzole 1 Tablet (of 5 mg) Oral daily, Naproxen 1 Tablet (of 500 mg) Oral b.i.d. Allergies: Trospium Chloride Vital Signs: Performed on Jun 09, 2020 15:30 Height - 69.00 in Weight - 184.2 lbs (HIGH) BSA - 1.99 sq.m BMI - 27.20 Temperature - 98.2 F (LOW) Pulse - 75 /min Respiration - 17 /min BP - 145/74 mm(hg) (HIGH) O2 Sat - 95 % (LOW) Pain - 0 Physical Examination: Constitutional - She looks good generally, Eyes - Sclerae nonicteric. Conjunctivae clear, Hematologic/Lymphatic - No adenopathy, Respiratory - Lungs are clear with good air movement bilaterally, Cardiovascular - Heart rhythm is regular. There is a II/ systolic murmur. There is no gallop or rub noted, Abdomen - Soft. Liver and spleen are not enlarged. There is no abdominal mass or ascites noted and there is no inguinal adenopathy, Extremities - No edema. Lab/Imaging: Test performed on Jun 09, 2020 14:10 Sodium 137 mmol/L Potassium 4.0 mmol/L Chloride 101 mmol/L CO2 30 mmol/L Anion Gap 10.0 BUN 16 mg/dL Creatinine 0.7 mg/dL Cr Clearance (Est) 105.68 mL/min eGFR 84.0 mL/min Glucose 91 mg/dL Osmolality - Calculated 285 mOsm/kg Calcium 8.8 mg/dL Protein, Total 5.9 g/dL Albumin 3.8 g/dL Globulin 2.1 g/dL Bilirubin, Total 0.3 mg/dL ALT (SGPT) 14 U/L AST (SGOT) 13 U/L Alkaline Phosphatase 65 IU/L WBC 5.4 10 3/uL RBC 3.63 10 6/uL HGB 11.2 g/dL HCT 33.6 % MCV 92.6 fL MCH 30.9 pg MCHC 33.3 g/dL RDW 12.3 % Platelet Count 225 10 3/cmm MPV 10.7 fL Neutrophils 4.10 10 3/uL Lymphocytes 0.7 10 3/uL Monocytes 0.4 10 3/uL Eosinophils 0.1 10 3/uL Basophils 0.1 10 3/uL Neutrophil % 76.5 % Lymphocyte % 12.9 % Monocyte % 6.9 % Eosinophil % 2.4 % Basophils % 1.1 % NRBC % 0 % Problem List: 1. Grade 2 invasive ductal carcinoma of the left breast, stage IIA (T2, pN1a, M0), ER/WI positive and HER-2/rani negative. Her Oncotype DX score was 10 (low risk), corresponding to a 12% risk of distant recurrence at 9 years with adjuvant hormonal therapy. There was no predicted benefit with adjuvant chemotherapy. 2. She underwent ultrasound directed needle biopsy of the left breast on 01/11/2020 followed by left breast lumpectomy/axillary sentinel lymph node biopsy on 01/27/2020 and by reexcision lumpectomy on 02/15/2020. 3. Hypertension. 4. Hyperthyroidism. 5. Degenerative arthritis. 6. Peripheral neuropathy. 7. Osteopenia. 8. Chronic anxiety. Problems Addressed with this Encounter and Plan: 1. Grade 2 invasive ductal carcinoma of the left breast, stage IIA (T2, pN1a, M0), ER/WI positive and HER-2/rani negative. Her Oncotype DX score was 10 (low risk), corresponding to a 12% risk of distant recurrence at 9 years with adjuvant hormonal therapy. She underwent ultrasound directed needle biopsy of the left breast on 01/11/2020 followed by left breast lumpectomy/axillary sentinel lymph node biopsy on 01/27/2020 and by reexcision lumpectomy on 02/15/2020. With a low risk Oncotype score adjuvant chemotherapy was not recommended. 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 She has had some fatigue following completion of the radiation, but her energy has continued to improve and the radiation dermatitis has now resolved. She has been recommended to have adjuvant hormonal therapy with anastrozole for 5 years. She is aware that it may cause or worsen osteoporosis and that it also may cause musculoskeletal pain as a side effect. She will now start treatment with anastrozole 1 mg daily. She will be scheduled for a follow-up visit in 3 months. She is to call if there is significant worsening of her musculoskeletal pain. 2. She has osteopenia. She will be following up with her certified court/medical interpreter and she will have a repeat Dexa scan with that visit. She will have further treatment for bone health as indicated. Signed By: Allen Restrepo M.D. <<Signature on File>>
== END 2020-06-29 23:59 | disposition home or self-care (01) ==
LOC: ONCMED 06:17
PROVIDERS: PCP Internal Medicine; Visit Provider Internal Medicine Medical Oncology
DX: C50.812 Malignant neoplasm of overlapping sites of left female breast (principal); Z17.0 Estrogen receptor positive status [ER+]; I10 Essential (primary) hypertension; E03.9 Hypothyroidism, unspecified; M19.90 Unspecified osteoarthritis, unspecified site; G62.9 Polyneuropathy, unspecified; M85.80 Other specified disorders of bone density and structure, unspecified site; F41.9 Anxiety disorder, unspecified; Z79.811 Long term (current) use of aromatase inhibitors; Z79.899 Other long term (current) drug therapy
CPT/HCPCS: 36415; 80053; 85025; 99214

== ENCOUNTER 2020-07-20 14:50 | Outpatient (CLI) | payer OTHER, SELFPAY ==
--- NOTE | 2020-07-20 15:11 | US_ITS ---
WS: [id number] ULTRASOUND BREAST LEFT TECHNIQUE: Ultrasound left breast focused area of concern. CLINICAL INFORMATION: BREAST CAN/SUDDEN ONSET REDNESS/WARMTH/SWELLING L BREAST COMPARISON: Outside examinations January 25, 2020 ultrasound December 22, 2019 outside mammogram Sep 2019 FINDINGS: 4 quadrant ultrasound left breast due to redness and swelling. Diffuse subcutaneous edema with skin t hickening is visualized worse in the upper outer quadrant along the axillary tail. No evidence of wel l-defined drainable abscess or fluid collection. A few thin pockets of subcutaneous fluid and edema l ikely due to cellulitis. Ductal ectasia seen at the areola 9:00 position with a dilated duct with dense echogenic intraluminal content and vascularity. Recommend correlation for mastitis. Intraluminal lesion not excluded. Dilat ed duct measures 1.1 x 0.8 x 1.0 CM. Recommend interval follow-up after treatment to exclude intraduc jesi lesion in this location. US/US breast LT limited* [id number] IMPRESSION: 1. No evidence of drainable abscess or fluid collection. 2. Skin thickening with scattered areas of subcutaneous edema likely due to ce llulitis. 3. Dilated duct at the areola 9:00 position with dense echogenic intraluminal contents. Recommend correlation for mastitis and infection. Intraluminal mass n ot excluded. Ultrasound follow-up after antibiotic treatment to exclude intralu sergei lesion.
== END 2020-07-20 14:51 | disposition home or self-care (01) ==
LOC: RAD 15:05 → ONCMED 17:02
PROVIDERS: PCP Internal Medicine; Visit Provider Internal Medicine Medical Oncology
DX: N61.0 Mastitis without abscess (principal); N64.4 Mastodynia
CPT/HCPCS: 76642

== ENCOUNTER 2020-09-20 14:47 | Outpatient (CLI) | payer OTHER, SELFPAY ==
--- NOTE | 2020-09-24 13:49 | ONC FU_ITS ---
Dr. Restrepo Patient Follow-Up Note Patient: Mary Ellen Vanegas Unit #: [id number]: 1955 Dicatated By: Allen Restrepo M.D.Date of Visit:Sep 20, 2020 Onc Med Follow-up/Prog Note Chief Complaint: Breast cancer. History of Present Illness: This is a 65 year-old woman with grade 2 invasive ductal carcinoma of the left breast, stage IIA (T2, pN1a, M0), ER/VA positive and HER-2/rani negative. Oncotype DX score was low risk with recurrence score 10. She had presented with a palpable lump in the left breast. She was not overly concerned because she has always had very lumpy breasts. Her diagnostic mammogram, though, showed an irregular mass in the left breast at the 1 to 2 o'clock position measuring 1.6 x 2.2 cm. Ultrasound showed a highly suspicious, irregular spiculated mass at the 12 to 1 o'clock position measuring 2.1 x 2.2 x 2.1 cm. There was no suspiciously enlarged axillary lymph nodes. Ultrasound-guided biopsy of the left breast mass on 01/11/2020 showed grade 1 invasive ductal carcinoma. She was then seen by Dr. Oliva and she underwent left breast lumpectomy with axillary sentinel lymph node biopsy on 01/27/2020. Pathology showed grade 2 invasive ductal carcinoma measuring 2.4 cm in greatest dimension. Invasive tumor was noted to involve the cranial margin and it was 3 mm from the closest deep margin. DCIS was identified 1 mm from the deep margin. Reexcision of the cranial/medial margin showed focal residual invasive ductal carcinoma at 9 mm from the new margin. DCIS was identified less than 1 mm from the new margin. A single axillary sentinel lymph node was positive for metastatic carcinoma with a metastatic focus measuring 3 mm. There was no extranodal extension identified. The rest prognostic profile on the initial biopsy showed ER positive at 99% and VA positive at 100%. It was negative for overexpression of HER-2/rani, 1+ by IHC. Her Oncotype DX showed recurrence score of 10, low risk, corresponding to a 12% risk of distant recurrence at 9 years with adjuvant hormonal therapy. There was no apparent benefit with adjuvant chemotherapy. On 02/15/2020 she underwent reexcision lumpectomy. Pathology showed biopsy site changes and focal atypical lobular hyperplasia but with no invasive carcinoma or ductal carcinoma in situ identified. I had seen her initially on 02/23/2020. With a low risk Oncotype score adjuvant chemotherapy was not recommended. She then underwent radiation to the left breast. 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 Adjuvant hormonal therapy with anastrozole 1 mg daily began in May 2020. Her other medical illnesses include hypertension, hyperthyroidism, degenerative arthritis, fibromyalgia, peripheral neuropathy, osteopenia, and chronic anxiety. Her prior surgeries include hysterectomy/bilateral salpingo-oophorectomy 1997. She had smoked in the past, but never heavy, and she quit smoking at age 22. There is a family history of breast cancer affecting her great aunt on her mother side and a first cousin on her mother side. Her father of lung cancer. She is seen for a follow-up visit. She has been feeling really tired since starting the anastrozole. She is still able to do light work. ECOG score is 1. She has good appetite. She has not had fever. She has been having hot flashes and sweating. She has some mild exertional dyspnea. She does not have resting dyspnea, cough, or chest pain. She is having nausea off and on and she also reports having acid reflux off and on. Bowel and bladder function have been okay. Her joint pain has worsened significantly. She does not complain of headache or dizziness. She has no focal neurologic symptoms. She does report having significant anxiety. Medications: ALPRAZolam 1 Tablet (of 0.25 mg) Oral PRN, amLODIPine Besylate 1 Tablet (of 10 mg) Oral daily, HYDROcodone-Acetaminophen 1 Tablet (of 10-325 mg) Oral PRN, Lyrica 1 Capsule (of 75 mg) Oral b.i.d., methIMAzole 1 Tablet (of 5 mg) Oral daily, Naproxen 1 Tablet (of 500 mg) Oral b.i.d. Allergies: Trospium Chloride Vital Signs: Performed on Sep 20, 2020 15:05 Height - 69.00 in Weight - 184.6 lbs (HIGH) BSA - 2.00 sq.m BMI - 27.26 Temperature - 98.8 F Pulse - 79 /min Respiration - 20 /min BP - 134/71 mm(hg) O2 Sat - 97 % Pain - 0 Fatigue - 7 Physical Examination: Constitutional - She looks good generally, Eyes - Sclerae nonicteric. Conjunctivae clear, ENMT - No lesions noted in the oral cavity, Hematologic/Lymphatic - No cervical, clavicular, or axillary adenopathy, Respiratory - Lungs are clear with good air movement bilaterally, Cardiovascular - Heart rhythm is regular. There is a II/ systolic murmur. There is no gallop or rub noted, Abdomen - Soft. Liver and spleen are not enlarged. There is no abdominal mass or ascites noted and there is no inguinal adenopathy, Extremities - No edema, Neurologic - No focal neurologic deficits noted. Lab/Imaging: Test performed on Jun 09, 2020 14:10 Sodium 137 mmol/L Potassium 4.0 mmol/L Chloride 101 mmol/L CO2 30 mmol/L Anion Gap 10.0 BUN 16 mg/dL Creatinine 0.7 mg/dL Cr Clearance (Est) 105.68 mL/min eGFR 84.0 mL/min Glucose 91 mg/dL Osmolality - Calculated 285 mOsm/kg Calcium 8.8 mg/dL Protein, Total 5.9 g/dL Albumin 3.8 g/dL Globulin 2.1 g/dL Bilirubin, Total 0.3 mg/dL ALT (SGPT) 14 U/L AST (SGOT) 13 U/L Alkaline Phosphatase 65 IU/L WBC 5.4 10 3/uL RBC 3.63 10 6/uL HGB 11.2 g/dL HCT 33.6 % MCV 92.6 fL MCH 30.9 pg MCHC 33.3 g/dL RDW 12.3 % Platelet Count 225 10 3/cmm MPV 10.7 fL Neutrophils 4.10 10 3/uL Lymphocytes 0.7 10 3/uL Monocytes 0.4 10 3/uL Eosinophils 0.1 10 3/uL Basophils 0.1 10 3/uL Neutrophil % 76.5 % Lymphocyte % 12.9 % Monocyte % 6.9 % Eosinophil % 2.4 % Basophils % 1.1 % NRBC % 0 % Problem List: 1. Grade 2 invasive ductal carcinoma of the left breast, stage IIA (T2, pN1a, M0), ER/VA positive and HER-2/rani negative. Her Oncotype DX score was 10 (low risk), corresponding to a 12% risk of distant recurrence at 9 years with adjuvant hormonal therapy. There was no predicted benefit with adjuvant chemotherapy. 2. She underwent ultrasound directed needle biopsy of the left breast on 01/11/2020 followed by left breast lumpectomy/axillary sentinel lymph node biopsy on 01/27/2020 and by reexcision lumpectomy on 02/15/2020. 3. Hypertension. 4. Hyperthyroidism. 5. Degenerative arthritis. 6. Peripheral neuropathy. 7. Osteopenia. 8. Chronic anxiety. Problems Addressed with this Encounter and Plan: 1. Patient with grade 2 invasive ductal carcinoma of the left breast, stage IIA (T2, pN1a, M0), ER/VA positive and HER-2/rani negative. Her Oncotype DX score was 10 (low risk), corresponding to a 12% risk of distant recurrence at 9 years with adjuvant hormonal therapy. She underwent ultrasound directed needle biopsy of the left breast on 01/11/2020 followed by left breast lumpectomy/axillary sentinel lymph node biopsy on 01/27/2020 and by reexcision lumpectomy on 02/15/2020. With a low risk Oncotype score adjuvant chemotherapy was not recommended. 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 In May 2019 when she began adjuvant hormonal therapy with anastrozole 1 mg daily. She comes in now with multiple complaints including severe fatigue, hot flashes/sweating, and worsening joint pain, all of which are likely to be treatment related. As such, the anastrozole will be put on hold. She will be scheduled for a follow-up visit in 1 month. 2. She has osteopenia. She will continue following up with her kardex clerk. Signed By: Allen Restrepo M.D. <<Signature on File>>
== END 2020-09-20 14:48 | disposition home or self-care (01) ==
PROVIDERS: PCP Internal Medicine; Visit Provider Internal Medicine Medical Oncology
DX: C50.812 Malignant neoplasm of overlapping sites of left female breast (principal); Z17.0 Estrogen receptor positive status [ER+]; Z90.12 Acquired absence of left breast and nipple; I10 Essential (primary) hypertension; E05.00 Thyrotoxicosis with diffuse goiter without thyrotoxic crisis or storm; M19.90 Unspecified osteoarthritis, unspecified site; G62.9 Polyneuropathy, unspecified; M85.80 Other specified disorders of bone density and structure, unspecified site; F41.9 Anxiety disorder, unspecified; Z79.811 Long term (current) use of aromatase inhibitors; Z79.899 Other long term (current) drug therapy; Z92.3 Personal history of irradiation
CPT/HCPCS: 99214

== ENCOUNTER 2021-01-16 15:47 | Outpatient (CLI) | payer OTHER, SELFPAY ==
--- NOTE | 2021-01-17 07:49 | ONC FU_ITS ---
Dr. Restrepo Patient Follow-Up Note Patient: Mary Ellen Vanegas Unit #: [id number]: 1955 Dicatated By: Allen Restrepo M.D.Date of Visit:Jan 16, 2021 Onc Med Follow-up/Prog Note Chief Complaint: Breast cancer. History of Present Illness: This is a 65 year-old woman with grade 2 invasive ductal carcinoma of the left breast, stage IIA (T2, pN1a, M0), ER/ME positive and HER-2/rani negative. Oncotype DX score was low risk with recurrence score 10. She had presented with a palpable lump in the left breast. She was not overly concerned because she has always had very lumpy breasts. Her diagnostic mammogram, though, showed an irregular mass in the left breast at the 1 to 2 o'clock position measuring 1.6 x 2.2 cm. Ultrasound showed a highly suspicious, irregular spiculated mass at the 12 to 1 o'clock position measuring 2.1 x 2.2 x 2.1 cm. There was no suspiciously enlarged axillary lymph nodes. Ultrasound-guided biopsy of the left breast mass on 01/11/2020 showed grade 1 invasive ductal carcinoma. She was then seen by Dr. Oliva and she underwent left breast lumpectomy with axillary sentinel lymph node biopsy on 01/27/2020. Pathology showed grade 2 invasive ductal carcinoma measuring 2.4 cm in greatest dimension. Invasive tumor was noted to involve the cranial margin and it was 3 mm from the closest deep margin. DCIS was identified 1 mm from the deep margin. Reexcision of the cranial/medial margin showed focal residual invasive ductal carcinoma at 9 mm from the new margin. DCIS was identified less than 1 mm from the new margin. A single axillary sentinel lymph node was positive for metastatic carcinoma with a metastatic focus measuring 3 mm. There was no extranodal extension identified. The rest prognostic profile on the initial biopsy showed ER positive at 99% and ME positive at 100%. It was negative for overexpression of HER-2/rani, 1+ by IHC. Her Oncotype DX showed recurrence score of 10, low risk, corresponding to a 12% risk of distant recurrence at 9 years with adjuvant hormonal therapy. There was no apparent benefit with adjuvant chemotherapy. On 02/15/2020 she underwent reexcision lumpectomy. Pathology showed biopsy site changes and focal atypical lobular hyperplasia but with no invasive carcinoma or ductal carcinoma in situ identified. I had seen her initially on 02/23/2020. With a low risk Oncotype score adjuvant chemotherapy was not recommended. She then underwent radiation to the left breast. 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 Adjuvant hormonal therapy with anastrozole 1 mg daily began in May 2020. Her other medical illnesses include hypertension, hyperthyroidism, degenerative arthritis, fibromyalgia, peripheral neuropathy, osteopenia, and chronic anxiety. Her prior surgeries include hysterectomy/bilateral salpingo-oophorectomy 1997. She had smoked in the past, but never heavy, and she quit smoking at age 22. There is a family history of breast cancer affecting her great aunt on her mother side and a first cousin on her mother side. Her father of lung cancer. INTERIM HISTORY: As of her follow-up visit in August 2020 she was having multiple complaints including severe fatigue, hot flashes/sweating, and worsening joint pain. These appear to be treatment related, and at that point I did have her stop the anastrozole. She is seen for a follow-up visit. As yet she has not started any further treatment for the breast cancer. She continues to complain that she feels super tired. She is working 5 days a week, but she basically just takes her whole weekend to try and recover. Her ECOG score is 1. She has continued venlafaxine for the hot flashes/sweating, and that has helped somewhat, though she is wondering if the medication may be contributing to her fatigue. Her appetite has been okay and her weight has been stable. She has not had fever. She is short of breath with activity, enough that it does limit her activity tolerance. She has just occasional cough. She does not complain of chest pain. She has acid reflux, for which she has been taking [id number] Prilosec. It is not really being managed adequately. She has no other GI or complaints. She continues to complain that her joints hurt bad, particularly her hands, feet, and legs. She does not complain of headache or dizziness, and she has no focal neurologic symptoms. Medications: ALPRAZolam 1 Tablet (of 0.25 mg) Oral PRN, amLODIPine Besylate 1 Tablet (of 10 mg) Oral daily, HYDROcodone-Acetaminophen 1 Tablet (of 10-325 mg) Oral PRN, Lyrica 1 Capsule (of 75 mg) Oral b.i.d., methIMAzole 1 Tablet (of 5 mg) Oral daily, Naproxen 1 Tablet (of 500 mg) Oral b.i.d. Allergies: Trospium Chloride Vital Signs: Performed on Jan 16, 2021 16:08 Height - 69.00 in Weight - 183.6 lbs (LOW) BSA - 1.99 sq.m BMI - 27.11 Temperature - 98.6 F Pulse - 85 /min Respiration - 16 /min BP - 148/79 mm(hg) (HIGH) O2 Sat - 96 % Pain - 0 Fatigue - 5 Physical Examination: Constitutional - She looks pretty good generally, Eyes - Sclerae nonicteric. Conjunctivae clear, ENMT - No lesions noted in the oral cavity, Hematologic/Lymphatic - No cervical, clavicular, or axillary adenopathy, Respiratory - Lungs sound clear with slightly diminished air movement bilaterally, Cardiovascular - Heart rhythm is regular. There is a II/ systolic murmur. There is no gallop or rub noted, Abdomen - Soft. Liver and spleen are not enlarged. There is no abdominal mass or ascites noted and there is no inguinal adenopathy, Extremities - No edema, Neurologic - No focal neurologic deficits noted. Problem List: 1. Grade 2 invasive ductal carcinoma of the left breast, stage IIA (T2, pN1a, M0), ER/ME positive and HER-2/rani negative. Her Oncotype DX score was 10 (low risk), corresponding to a 12% risk of distant recurrence at 9 years with adjuvant hormonal therapy. There was no predicted benefit with adjuvant chemotherapy. 2. She underwent ultrasound directed needle biopsy of the left breast on 01/11/2020 followed by left breast lumpectomy/axillary sentinel lymph node biopsy on 01/27/2020 and by reexcision lumpectomy on 02/15/2020. 3. Hypertension. 4. Hyperthyroidism. 5. Degenerative arthritis. 6. Peripheral neuropathy. 7. Osteopenia. 8. Chronic anxiety. Problems Addressed with this Encounter and Plan: 1. Patient with grade 2 invasive ductal carcinoma of the left breast, stage IIA (T2, pN1a, M0), ER/ME positive and HER-2/rani negative. Her Oncotype DX score was 10 (low risk), corresponding to a 12% risk of distant recurrence at 9 years with adjuvant hormonal therapy. She underwent ultrasound directed needle biopsy of the left breast on 01/11/2020 followed by left breast lumpectomy/axillary sentinel lymph node biopsy on 01/27/2020 and by reexcision lumpectomy on 02/15/2020. With a low risk Oncotype score adjuvant chemotherapy was not recommended. 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 In May 2019 when she began adjuvant hormonal therapy with anastrozole 1 mg daily. At her follow-up visit in August 2020 she presented with multiple complaints including severe fatigue, hot flashes/sweating, and worsening joint pain, all of which appeared to be treatment related. As such, the anastrozole was put on hold, and she began treatment with venlafaxine for the hot flashes/sweating. Thus far during follow-up she has continued to have severe fatigue and she also has been short of breath with activity. Her joint pain has also not improved. At least for now she will remain off treatment, and she will be scheduled for CT pulmonary angiogram. At least for now I will have her stop the venlafaxine. She will be given a prescription for pantoprazole for the acid reflux. She will have further evaluation as indicated. 2. She has osteopenia. 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 Signed By: Allen Restrepo M.D. <<Signature on File>>
== END 2021-01-16 15:48 | disposition home or self-care (01) ==
LOC: ONCMED 15:50
PROVIDERS: PCP Internal Medicine; Visit Provider Internal Medicine Medical Oncology
DX: C50.812 Malignant neoplasm of overlapping sites of left female breast (principal); Z17.0 Estrogen receptor positive status [ER+]; I10 Essential (primary) hypertension; E05.90 Thyrotoxicosis, unspecified without thyrotoxic crisis or storm; M19.90 Unspecified osteoarthritis, unspecified site; G62.9 Polyneuropathy, unspecified; M85.80 Other specified disorders of bone density and structure, unspecified site; F41.9 Anxiety disorder, unspecified; Z79.818 Long term (current) use of other agents affecting estrogen receptors and estrogen levels; Z90.12 Acquired absence of left breast and nipple
CPT/HCPCS: 99214

== ENCOUNTER 2021-02-01 08:07 | Outpatient (CLI) | payer OTHER, SELFPAY ==
[2021-02-01 08:29] LABS: Basophils # 0.1 10^3/uL (0.0-0.1); Basophils % 1.4 %; Eosinophils # 0.1 10^3/uL (0.0-0.8); Eosinophils % 2.5 %; Hematocrit 39.1 % (37.0-47.0); Hemoglobin 12.9 g/dL (11.5-15.3); Lymphocytes # 0.7 10^3/uL (0.8-4.8); Lymphocytes % 16.2 %; Mean Corpuscular Hemoglobin 30.1 pg (28.0-34.0); Mean Corpuscular Volume 91.4 fl (81-99); Mean Platelet Volume 10.6 fL (7.4-10.4); Monocytes # 0.3 10^3/uL (0.2-0.9); Monocytes % 6.1 %; Neutrophils # 3.28 10^3/uL (1.8-7.7); Neutrophils % 73.8 %; Nucleated Red Blood Cells % 0 %; Platelet Count 237 10^3/cmm (130-400); Red Blood Count 4.28 10^6/uL (4.1-5.3); White Blood Count 4.4 10^3/uL (4.0-10.0)
[2021-02-01 09:25] LABS: Alanine Aminotransferase 12 U/L (0-33); Albumin Level 4.5 g/dL (3.5-5.2); Alkaline Phosphatase 75 IU/L (35-105); Anion Gap 12.8 (5-19); Aspartate Amino Transferase 13 U/L (0-32); Blood Urea Nitrogen 14 mg/dL (8-23); Calcium 9.2 mg/dL (8.5-10.5); Carbon Dioxide 29 mmol/L (22-29); Chloride 104 mmol/L (98-107); Globulin 2.3 g/dL (1.3-4.6); Glucose 75 mg/dL (65-115); Iron 82 ug/dL (37-145); Osmolality Calculated 293 mOsm/kg (285-295); Percent Saturation 27.9 % (20-50); Potassium 3.8 mmol/L (3.5-5.1); Sodium 142 mmol/L (136-145); Thyroid Stimulating Hormone 2.57 uIU/mL (0.27-4.20); Total Bilirubin 0.4 mg/dL (0.15-1.2); Total Iron Binding Capacity 293 mcg/dl; Total Protein 6.8 g/dL (6.6-8.7); Unsaturated Iron Binding 211 ug/dL (112-347); Vitamin B12 470 pg/mL (232-1245)
[2021-02-01 10:18] LABS: Free T4 Free Thyroxine 0.81 ng/dL (0.82-1.77)
[2021-02-01 10:54] LABS: 25 Hydroxy Vitamin D 34 ng/mL (30-100)
--- NOTE | 2021-02-01 19:50 | ONC FU_ITS ---
Dr. Restrepo Patient Follow-Up Note Patient: Mary Ellen Vanegas Unit #: [id number]: 1955 Dicatated By: Allen Restrepo M.D.Date of Visit:Feb 01, 2021 Onc Med Follow-up/Prog Note Chief Complaint: Breast cancer. History of Present Illness: This is a 65 year-old woman with grade 2 invasive ductal carcinoma of the left breast, stage IIA (T2, pN1a, M0), ER/MO positive and HER-2/rani negative. Oncotype DX score was low risk with recurrence score 10. She had presented with a palpable lump in the left breast. She was not overly concerned because she has always had very lumpy breasts. Her diagnostic mammogram, though, showed an irregular mass in the left breast at the 1 to 2 o'clock position measuring 1.6 x 2.2 cm. Ultrasound showed a highly suspicious, irregular spiculated mass at the 12 to 1 o'clock position measuring 2.1 x 2.2 x 2.1 cm. There was no suspiciously enlarged axillary lymph nodes. Ultrasound-guided biopsy of the left breast mass on 01/11/2020 showed grade 1 invasive ductal carcinoma. She was then seen by Dr. Oliva and she underwent left breast lumpectomy with axillary sentinel lymph node biopsy on 01/27/2020. Pathology showed grade 2 invasive ductal carcinoma measuring 2.4 cm in greatest dimension. Invasive tumor was noted to involve the cranial margin and it was 3 mm from the closest deep margin. DCIS was identified 1 mm from the deep margin. Reexcision of the cranial/medial margin showed focal residual invasive ductal carcinoma at 9 mm from the new margin. DCIS was identified less than 1 mm from the new margin. A single axillary sentinel lymph node was positive for metastatic carcinoma with a metastatic focus measuring 3 mm. There was no extranodal extension identified. The rest prognostic profile on the initial biopsy showed ER positive at 99% and MO positive at 100%. It was negative for overexpression of HER-2/rani, 1+ by IHC. Her Oncotype DX showed recurrence score of 10, low risk, corresponding to a 12% risk of distant recurrence at 9 years with adjuvant hormonal therapy. There was no apparent benefit with adjuvant chemotherapy. On 02/15/2020 she underwent reexcision lumpectomy. Pathology showed biopsy site changes and focal atypical lobular hyperplasia but with no invasive carcinoma or ductal carcinoma in situ identified. I had seen her initially on 02/23/2020. With a low risk Oncotype score adjuvant chemotherapy was not recommended. She then underwent radiation to the left breast. 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 Adjuvant hormonal therapy with anastrozole 1 mg daily began in May 2020. Her other medical illnesses include hypertension, hyperthyroidism, degenerative arthritis, fibromyalgia, peripheral neuropathy, osteopenia, and chronic anxiety. Her prior surgeries include hysterectomy/bilateral salpingo-oophorectomy 1997. She had smoked in the past, but never heavy, and she quit smoking at age 22. There is a family history of breast cancer affecting her great aunt on her mother side and a first cousin on her mother side. Her father of lung cancer. INTERIM HISTORY: As of her follow-up visit in August 2020 she was having multiple complaints including severe fatigue, hot flashes/sweating, and worsening joint pain. These appear to be treatment related, and at that point I did have her stop the anastrozole. During subsequent follow-up she continued to have severe fatigue and hot flashes/sweating. She is seen for a follow-up visit. She still has not been feeling good generally. Following her last visit she had stopped taking venlafaxine, she thought it might be making her fatigue worse. The main difference is that she could tell it was helping with her hot flashes/sweating, as those symptoms got worse again. Her energy is still not good, she is doing some work. ECOG score is 1. Her appetite has been good, and she has not had fever. She does not complain of shortness of breath or cough, and she has not been having chest pain. She has no GI or complaints. She has significant arthritis pain, clean the knees, hands, and feet, but that is pretty much back to baseline now. She does not complain of headache or dizziness, and she has no focal neurologic symptoms. Medications: ALPRAZolam 1 Tablet (of 0.25 mg) Oral PRN, amLODIPine Besylate 1 Tablet (of 10 mg) Oral daily, HYDROcodone-Acetaminophen 1 Tablet (of 10-325 mg) Oral PRN, Lyrica 1 Capsule (of 75 mg) Oral b.i.d., methIMAzole 1 Tablet (of 5 mg) Oral daily Allergies: Trospium Chloride Vital Signs: Performed on Feb 01, 2021 10:12 Height - 69.00 in Weight - 185.2 lbs (HIGH) BSA - 2.00 sq.m BMI - 27.35 Temperature - 97.0 F (LOW) Pulse - 81 /min Respiration - 18 /min BP - 149/73 mm(hg) (HIGH) O2 Sat - 98 % Pain - 4 Fatigue - 6 Physical Examination: Constitutional - She looks pretty good generally, Eyes - Sclerae nonicteric. Conjunctivae clear, ENMT - No lesions noted in the oral cavity, Hematologic/Lymphatic - No cervical, clavicular, or axillary adenopathy, Respiratory - Lungs sound clear with slightly diminished air movement bilaterally, Cardiovascular - Heart rhythm is regular. There is a II/ systolic murmur. There is no gallop or rub noted, Abdomen - Soft. Liver and spleen are not enlarged. There is no abdominal mass or ascites noted and there is no inguinal adenopathy, Extremities - No edema, Neurologic - No focal neurologic deficits noted. Lab/Imaging: Test performed on Feb 01, 2021 08:55 Vitamin D (25-Hydroxy), Total 34 ng/mL Test performed on Feb 01, 2021 08:20 Iron 82 mcg/dL Sodium 142 mmol/L T4, Free 0.81 ng/dL TSH 2.57 uIU/mL Vitamin B12 470 pg/mL Iron Binding Capacity (TIBC) 293 mcg/dl Potassium 3.8 mmol/L % Iron Saturation 27.9 % Chloride 104 mmol/L CO2 29 mmol/L UIBC 211 mcg/dL Anion Gap 12.8 BUN 14 mg/dL Creatinine 0.7 mg/dL Cr Clearance (Est) 106.26 mL/min eGFR 84.0 mL/min Glucose 75 mg/dL Osmolality - Calculated 293 mOsm/kg Calcium 9.2 mg/dL Protein, Total 6.8 g/dL Albumin 4.5 g/dL Globulin 2.3 g/dL Bilirubin, Total 0.4 mg/dL ALT (SGPT) 12 U/L AST (SGOT) 13 U/L Alkaline Phosphatase 75 IU/L WBC 4.4 10 3/uL RBC 4.28 10 6/uL HGB 12.9 g/dL HCT 39.1 % MCV 91.4 fl MCH 30.1 pg MCHC 33.0 g/dL RDW 12.0 % Platelet Count 237 10 3/cmm MPV 10.6 fL Neutrophils 3.28 10 3/uL Lymphocytes 0.7 10 3/uL Monocytes 0.3 10 3/uL Eosinophils 0.1 10 3/uL Basophils 0.1 10 3/uL Neutrophil % 73.8 % Lymphocyte % 16.2 % Monocyte % 6.1 % Eosinophil % 2.5 % Basophils % 1.4 % NRBC % 0 % Problem List: 1. Grade 2 invasive ductal carcinoma of the left breast, stage IIA (T2, pN1a, M0), ER/MO positive and HER-2/rani negative. Her Oncotype DX score was 10 (low risk), corresponding to a 12% risk of distant recurrence at 9 years with adjuvant hormonal therapy. There was no predicted benefit with adjuvant chemotherapy. 2. She underwent ultrasound directed needle biopsy of the left breast on 01/11/2020 followed by left breast lumpectomy/axillary sentinel lymph node biopsy on 01/27/2020 and by reexcision lumpectomy on 02/15/2020. 3. Hypertension. 4. Hyperthyroidism. 5. Degenerative arthritis. 6. Peripheral neuropathy. 7. Osteopenia. 8. Chronic anxiety. Problems Addressed with this Encounter and Plan: 1. Patient with grade 2 invasive ductal carcinoma of the left breast, stage IIA (T2, pN1a, M0), ER/MO positive and HER-2/rani negative. Her Oncotype DX score was 10 (low risk), corresponding to a 12% risk of distant recurrence at 9 years with adjuvant hormonal therapy. She underwent ultrasound directed needle biopsy of the left breast on 01/11/2020 followed by left breast lumpectomy/axillary sentinel lymph node biopsy on 01/27/2020 and by reexcision lumpectomy on 02/15/2020. With a low risk Oncotype score adjuvant chemotherapy was not recommended. 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 In May 2019 when she began adjuvant hormonal therapy with anastrozole 1 mg daily. At her follow-up visit in August 2020 she presented with multiple complaints including severe fatigue, hot flashes/sweating, and worsening joint pain, all of which appeared to be treatment related. As such, the anastrozole was put on hold, and she began treatment with venlafaxine for the hot flashes/sweating. During follow-up she has continued to have severe fatigue and the hot flashes and sweating also have persisted. At this point it does appear that her symptoms are most likely related to having stopped hormone replacement therapy. Further management may be problematic, she obviously cannot have any further estrogen therapy. I will have her try gabapentin, initially at 100 mg 3 times daily. I am going to go ahead and check on her insurance coverage to continue further adjuvant hormonal therapy with exemestane 25 mg daily. She has had difficulty tolerating naproxen due to GI side effects, so I also will check on coverage for either Celebrex or meloxicam for her arthritis pain. I will tentatively plan a follow-up visit in 1 month. Signed By: Allen Restrepo M.D. <<Signature on File>>
== END 2021-02-01 08:08 | disposition home or self-care (01) ==
PROVIDERS: PCP Internal Medicine; Visit Provider Internal Medicine Medical Oncology
DX: C50.912 Malignant neoplasm of unspecified site of left female breast (principal); I10 Essential (primary) hypertension; E05.90 Thyrotoxicosis, unspecified without thyrotoxic crisis or storm; F41.9 Anxiety disorder, unspecified; Z79.899 Other long term (current) drug therapy; Z87.891 Personal history of nicotine dependence; Z80.3 Family history of malignant neoplasm of breast
CPT/HCPCS: 36415; 80053; 82306; 82607; 83540; 83550; 84439; 84443; 85025; 99214

== ENCOUNTER 2021-02-22 06:00 | Outpatient (RCR) | payer OTHER, SELFPAY | END 2021-02-28 23:59 | disposition home or self-care (01) | LOC: SPT 06:00 | PROVIDERS: PCP Internal Medicine; Referring Provider Nurse Practitioner Family; Visit Provider Nurse Practitioner Family | DX: I89.0 Lymphedema, not elsewhere classified (principal); N64.4 Mastodynia | CPT/HCPCS: 97162 ==

== ENCOUNTER 2021-03-07 13:22 | Outpatient (CLI) | payer OTHER, SELFPAY ==
--- NOTE | 2021-03-11 10:38 | ONC FU_ITS ---
Dr. Restrepo Patient Follow-Up Note Patient: Mary Ellen Vanegas Unit #: [id number]: 1955 Dicatated By: Allen Restrepo M.D.Date of Visit:Mar 07, 2021 Onc Med Follow-up/Prog Note Chief Complaint: Breast cancer. History of Present Illness: This is a 65 year-old woman with grade 2 invasive ductal carcinoma of the left breast, stage IIA (T2, pN1a, M0), ER/SD positive and HER-2/rnai negative. Oncotype DX score was low risk with recurrence score 10. She had presented with a palpable lump in the left breast. She was not overly concerned because she has always had very lumpy breasts. Her diagnostic mammogram, though, showed an irregular mass in the left breast at the 1 to 2 o'clock position measuring 1.6 x 2.2 cm. Ultrasound showed a highly suspicious, irregular spiculated mass at the 12 to 1 o'clock position measuring 2.1 x 2.2 x 2.1 cm. There was no suspiciously enlarged axillary lymph nodes. Ultrasound-guided biopsy of the left breast mass on 01/11/2020 showed grade 1 invasive ductal carcinoma. She was then seen by Dr. Oliva and she underwent left breast lumpectomy with axillary sentinel lymph node biopsy on 01/27/2020. Pathology showed grade 2 invasive ductal carcinoma measuring 2.4 cm in greatest dimension. Invasive tumor was noted to involve the cranial margin and it was 3 mm from the closest deep margin. DCIS was identified 1 mm from the deep margin. Reexcision of the cranial/medial margin showed focal residual invasive ductal carcinoma at 9 mm from the new margin. DCIS was identified less than 1 mm from the new margin. A single axillary sentinel lymph node was positive for metastatic carcinoma with a metastatic focus measuring 3 mm. There was no extranodal extension identified. The rest prognostic profile on the initial biopsy showed ER positive at 99% and SD positive at 100%. It was negative for overexpression of HER-2/rani, 1+ by IHC. Her Oncotype DX showed recurrence score of 10, low risk, corresponding to a 12% risk of distant recurrence at 9 years with adjuvant hormonal therapy. There was no apparent benefit with adjuvant chemotherapy. On 02/15/2020 she underwent reexcision lumpectomy. Pathology showed biopsy site changes and focal atypical lobular hyperplasia but with no invasive carcinoma or ductal carcinoma in situ identified. I had seen her initially on 02/23/2020. With a low risk Oncotype score adjuvant chemotherapy was not recommended. She then underwent radiation to the left breast. 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 Adjuvant hormonal therapy with anastrozole 1 mg daily began in May 2020. Her other medical illnesses include hypertension, hyperthyroidism, degenerative arthritis, fibromyalgia, peripheral neuropathy, osteopenia, and chronic anxiety. Her prior surgeries include hysterectomy/bilateral salpingo-oophorectomy 1997. She had smoked in the past, but never heavy, and she quit smoking at age 22. There is a family history of breast cancer affecting her great aunt on her mother side and a first cousin on her mother side. Her father of lung cancer. INTERIM HISTORY: As of her follow-up visit in August 2020 she was having multiple complaints including severe fatigue, hot flashes/sweating, and worsening joint pain. These appear to be treatment related, and at that point I did have her stop the anastrozole. During subsequent follow-up she continued to have severe fatigue and hot flashes/sweating. She initially had some benefit with venlafaxine, but she then stopped taking it. As of her follow-up visit on 02/01/2021 she began further adjuvant hormonal therapy with exemestane 25 mg daily. She also restarted the venlafaxine. She is seen for a follow-up visit. She has been feeling pretty good generally. She does report having significant fatigue, but she is able to work and she remains active. ECOG score is one. She has good appetite. She has not had fever. She does have hot flashes, but they seem to be tolerable with the venlafaxine. She also has joint pain, but with regular use of meloxicam it also has been tolerable. She does complain of having muscle pain in her right arm, and recently she has been going to physical therapy for lymphedema management. She has not had sore mouth or throat. She does not complain of cough, and she has not been having shortness of breath or chest pain. She has no GI or complaints. She does not complain of headache or dizziness, and she has no focal neurologic symptoms. Medications: ALPRAZolam 1 Tablet (of 0.25 mg) Oral PRN, amLODIPine Besylate 1 Tablet (of 10 mg) Oral daily, HYDROcodone-Acetaminophen 1 Tablet (of 10-325 mg) Oral PRN, Lyrica 1 Capsule (of 75 mg) Oral b.i.d., methIMAzole 1 Tablet (of 5 mg) Oral daily Allergies: Trospium Chloride Vital Signs: Performed on Mar 07, 2021 15:11 Height - 69.00 in Weight - 186.2 lbs (HIGH) BSA - 2.00 sq.m BMI - 27.50 Temperature - 97.7 F (LOW) Pulse - 83 /min Respiration - 16 /min BP - 127/68 mm(hg) O2 Sat - 98 % Pain - 4 Fatigue - 7 Physical Examination: Constitutional - She looks pretty good generally, Eyes - Sclerae nonicteric. Conjunctivae clear, ENMT - No lesions noted in the oral cavity, Hematologic/Lymphatic - No cervical, clavicular, or axillary adenopathy, Respiratory - Lungs sound clear with slightly diminished air movement bilaterally, Cardiovascular - Heart rhythm is regular. There is a II/ systolic murmur. There is no gallop or rub noted, Abdomen - Soft. Liver and spleen are not enlarged. There is no abdominal mass or ascites noted and there is no inguinal adenopathy, Extremities - No lower extremity edema. There is mild swelling in the right arm, Neurologic - No focal neurologic deficits noted. Lab/Imaging: Test performed on Feb 01, 2021 08:55 Vitamin D (25-Hydroxy), Total 34 ng/mL Test performed on Feb 01, 2021 08:20 Iron 82 mcg/dL Sodium 142 mmol/L T4, Free 0.81 ng/dL TSH 2.57 uIU/mL Vitamin B12 470 pg/mL Iron Binding Capacity (TIBC) 293 mcg/dl Potassium 3.8 mmol/L % Iron Saturation 27.9 % Chloride 104 mmol/L CO2 29 mmol/L UIBC 211 mcg/dL Anion Gap 12.8 BUN 14 mg/dL Creatinine 0.7 mg/dL Cr Clearance (Est) 106.26 mL/min eGFR 84.0 mL/min Glucose 75 mg/dL Osmolality - Calculated 293 mOsm/kg Calcium 9.2 mg/dL Protein, Total 6.8 g/dL Albumin 4.5 g/dL Globulin 2.3 g/dL Bilirubin, Total 0.4 mg/dL ALT (SGPT) 12 U/L AST (SGOT) 13 U/L Alkaline Phosphatase 75 IU/L WBC 4.4 10 3/uL RBC 4.28 10 6/uL HGB 12.9 g/dL HCT 39.1 % MCV 91.4 fl MCH 30.1 pg MCHC 33.0 g/dL RDW 12.0 % Platelet Count 237 10 3/cmm MPV 10.6 fL Neutrophils 3.28 10 3/uL Lymphocytes 0.7 10 3/uL Monocytes 0.3 10 3/uL Eosinophils 0.1 10 3/uL Basophils 0.1 10 3/uL Neutrophil % 73.8 % Lymphocyte % 16.2 % Monocyte % 6.1 % Eosinophil % 2.5 % Basophils % 1.4 % NRBC % 0 % Problem List: 1. Grade 2 invasive ductal carcinoma of the left breast, stage IIA (T2, pN1a, M0), ER/SD positive and HER-2/rani negative. Her Oncotype DX score was 10 (low risk), corresponding to a 12% risk of distant recurrence at 9 years with adjuvant hormonal therapy. There was no predicted benefit with adjuvant chemotherapy. 2. She underwent ultrasound directed needle biopsy of the left breast on 01/11/2020 followed by left breast lumpectomy/axillary sentinel lymph node biopsy on 01/27/2020 and by reexcision lumpectomy on 02/15/2020. 3. Hypertension. 4. Hyperthyroidism. 5. Degenerative arthritis. 6. Peripheral neuropathy. 7. Osteopenia. 8. Chronic anxiety. Problems Addressed with this Encounter and Plan: 1. Patient with grade 2 invasive ductal carcinoma of the left breast, stage IIA (T2, pN1a, M0), ER/SD positive and HER-2/rani negative. Her Oncotype DX score was 10 (low risk), corresponding to a 12% risk of distant recurrence at 9 years with adjuvant hormonal therapy. She underwent ultrasound directed needle biopsy of the left breast on 01/11/2020 followed by left breast lumpectomy/axillary sentinel lymph node biopsy on 01/27/2020 and by reexcision lumpectomy on 02/15/2020. With a low risk Oncotype score adjuvant chemotherapy was not recommended. 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 In May 2019 when she began adjuvant hormonal therapy with anastrozole 1 mg daily. At her follow-up visit in August 2020 she presented with multiple complaints including severe fatigue, hot flashes/sweating, and worsening joint pain, all of which appeared to be treatment related. As such, the anastrozole was put on hold, and she began treatment with venlafaxine for the hot flashes/sweating. As of her follow-up visit on 02/01/2021 she began further adjuvant hormonal therapy with exemestane 25 mg daily. She also restarted venlafaxine for the hot flashes. At this point she continues to have fatigue and she still has some hot flashes and joint pain, but thus she appears to be tolerating the exemestane treatment with acceptable toxicity. She continues exemestane 25 mg daily. I will see her again in 3 months. Signed By: Allen Restrepo M.D. <<Signature on File>>
== END 2021-03-07 13:23 | disposition home or self-care (01) ==
LOC: ONCMED 13:25
PROVIDERS: PCP Internal Medicine; Visit Provider Internal Medicine Medical Oncology
DX: C50.812 Malignant neoplasm of overlapping sites of left female breast (principal); Z17.0 Estrogen receptor positive status [ER+]; Z90.12 Acquired absence of left breast and nipple; I10 Essential (primary) hypertension; E05.90 Thyrotoxicosis, unspecified without thyrotoxic crisis or storm; M19.90 Unspecified osteoarthritis, unspecified site; G62.9 Polyneuropathy, unspecified; M85.80 Other specified disorders of bone density and structure, unspecified site; F41.9 Anxiety disorder, unspecified; Z79.818 Long term (current) use of other agents affecting estrogen receptors and estrogen levels; Z79.899 Other long term (current) drug therapy; Z92.21 Personal history of antineoplastic chemotherapy
CPT/HCPCS: 99214

== ENCOUNTER 2021-09-25 12:38 | Oncology outpatient (recurring) (ONCR) | payer MEDICARE, SELFPAY | END 2021-09-28 23:59 | disposition home or self-care (01) | PROVIDERS: PCP Internal Medicine; Visit Provider Internal Medicine Medical Oncology | DX: C50.412 Malignant neoplasm of upper-outer quadrant of left female breast (principal); Z17.0 Estrogen receptor positive status [ER+]; Z79.818 Long term (current) use of other agents affecting estrogen receptors and estrogen levels; Z92.3 Personal history of irradiation | CPT/HCPCS: 99214 ==

== ENCOUNTER 2022-08-07 15:46 | Oncology outpatient (recurring) (ONCR) | payer MEDICARE, SELFPAY ==
[2022-08-07 17:17] LABS: Basophils % 0.8 %; Eosinophils # 0.1 10^3/uL (0.0-0.8); Eosinophils % 1.4 %; Hematocrit 37.6 % (37.0-47.0); Hemoglobin 12.2 g/dL (11.5-15.3); Lymphocytes # 0.8 10^3/uL (0.8-4.8); Mean Corpuscular HGB Conc 32.4 g/dL (30.0-36.0); Mean Corpuscular Hemoglobin 29.5 pg (28.0-34.0); Mean Platelet Volume 10.8 fL (7.4-10.4); Monocytes # 0.3 10^3/uL (0.2-0.9); Monocytes % 5.1 %; Neutrophils # 3.72 10^3/uL (1.8-7.7); Neutrophils % 75.3 %; Nucleated Red Blood Cells % 0 %; Platelet Count 227 10^3/cmm (130-400); Red Blood Count 4.13 10^6/uL (4.1-5.3); Red Cell Distribution Width 12.5 % (12.1-15.1); White Blood Count 4.9 10^3/uL (4.0-10.0)
[2022-08-07 17:22] LABS: Erythrocyte Sedimentation Rate < 1 mm/hr (0-15)
[2022-08-07 18:14] LABS: Alanine Aminotransferase 15 U/L (0-33); Albumin Level 4.6 g/dL (3.5-5.2); Alkaline Phosphatase 70 U/L (35-105); Anion Gap 13.3 (5-19); Aspartate Amino Transferase 16 U/L (0-32); Blood Urea Nitrogen 17 mg/dL (8-23); Calcium 8.7 mg/dL (8.5-10.5); Carbon Dioxide 28 mmol/L (22-29); Chloride 103 mmol/L (98-107); Glomerular Filtration Rate 71.5 mL/min (90-130); Glucose 95 mg/dL (65-115); Osmolality Calculated 291 mOsm/kg (285-295); Potassium 4.3 mmol/L (3.5-5.1); Sodium 140 mmol/L (136-145); Thyroid Stimulating Hormone 1.85 uIU/mL (0.27-4.20); Total Bilirubin 0.2 mg/dL (0.15-1.2); Total Protein 6.6 g/dL (6.6-8.7); Vitamin B12 516 pg/mL (232-1245)
[2022-08-10 12:14] LABS: Anti-Nuclear Antibody Pattern Nuclear, Homogeneous; Anti-Nuclear Antibody Screen POSITIVE (NEGATIVE); Anti-Nuclear Antibody Titer 1:40 titer
== END 2022-08-29 23:59 | disposition home or self-care (01) ==
PROVIDERS: PCP Internal Medicine; Visit Provider Internal Medicine Medical Oncology
DX: C50.812 Malignant neoplasm of overlapping sites of left female breast (principal); Z17.0 Estrogen receptor positive status [ER+]; R53.0 Neoplastic (malignant) related fatigue; R23.2 Flushing; Z79.811 Long term (current) use of aromatase inhibitors; Z79.899 Other long term (current) drug therapy; Z87.891 Personal history of nicotine dependence
CPT/HCPCS: 36415; 80053; 82607; 84443; 85025; 85651; 86038; 86140; 99214

== ENCOUNTER 2022-11-23 10:49 | Oncology outpatient (recurring) (ONCR) | payer MEDICARE, SELFPAY ==
[2022-11-23 12:24] LABS: Basophils # 0.1 10^3/uL (0.0-0.1); Basophils % 1.1 %; Eosinophils # 0.1 10^3/uL (0.0-0.8); Hematocrit 39.7 % (36-47); Lymphocytes # 0.9 10^3/uL (0.8-4.8); Lymphocytes % 18.9 %; Mean Corpuscular HGB Conc 32.7 g/dL (30-55); Mean Corpuscular Hemoglobin 29.7 pg (27-33); Mean Corpuscular Volume 90.8 fl (85-98); Mean Platelet Volume 10.6 fL (7.4-10.4); Monocytes # 0.3 10^3/uL (0.2-0.9); Monocytes % 6.3 %; Neutrophils # 3.24 10^3/uL (1.8-7.7); Neutrophils % 70.5 %; Nucleated Red Blood Cells % 0 %; Platelet Count 230 10^3/cmm (157-399); Red Blood Count 4.37 10^6/uL (3.85-5.65); Red Cell Distribution Width 12.6 % (12.1-15.1)
[2022-11-23 13:01] LABS: Alanine Aminotransferase 15 U/L (0-33); Albumin Level 4.6 g/dL (3.5-5.2); Alkaline Phosphatase 84 U/L (35-105); Aspartate Amino Transferase 16 U/L (0-32); Blood Urea Nitrogen 16 mg/dL (8-23); Calcium 9.3 mg/dL (8.5-10.5); Carbon Dioxide 31 mmol/L (22-29); Chloride 103 mmol/L (98-107); Globulin 2.3 g/dL (1.3-4.6); Glomerular Filtration Rate 83.5 mL/min (90-130); Glucose 92 mg/dL (65-115); Osmolality Calculated 295 mOsm/kg (285-295); Sodium 142 mmol/L (136-145); Total Bilirubin 0.5 mg/dL (0.15-1.2); Total Protein 6.9 g/dL (6.6-8.7)
[2022-11-23 13:02] LABS: Anion Gap 12.1 (5-19); Potassium 4.1 mmol/L (3.5-5.1)
== END 2022-11-29 23:59 | disposition home or self-care (01) ==
PROVIDERS: Nurse Practitioner Family; PCP Internal Medicine; Visit Provider Internal Medicine Medical Oncology
DX: R25.1 Tremor, unspecified (principal); M25.50 Pain in unspecified joint; Z17.0 Estrogen receptor positive status [ER+]; C50.412 Malignant neoplasm of upper-outer quadrant of left female breast
CPT/HCPCS: 80053; 85025; 99214

== ENCOUNTER 2022-12-25 10:42 | Oncology outpatient (recurring) (ONCR) | payer MEDICARE, SELFPAY ==
[2022-12-25 10:47] VITALS: BP 144/76; PULSE 89; RESP 16; TEMP 36.9; O2SAT 96
[2022-12-25 11:01] LABS: Basophils # 0.1 10^3/uL (0.0-0.1); Basophils % 1.3 %; Eosinophils # 0.2 10^3/uL (0.0-0.8); Eosinophils % 3.3 %; Hematocrit 38.5 % (36-47); Lymphocytes # 1.2 10^3/uL (0.8-4.8); Lymphocytes % 25.4 %; Mean Corpuscular HGB Conc 32.7 g/dL (30-55); Mean Corpuscular Hemoglobin 29.7 pg (27-33); Mean Corpuscular Volume 90.8 fl (85-98); Mean Platelet Volume 10.6 fL (7.4-10.4); Monocytes # 0.3 10^3/uL (0.2-0.9); Neutrophils # 2.86 10^3/uL (1.8-7.7); Neutrophils % 62.6 %; Nucleated Red Blood Cells % 0 %; Platelet Count 220 10^3/cmm (157-399); Red Blood Count 4.24 10^6/uL (3.85-5.65); Red Cell Distribution Width 12.6 % (12.1-15.1); White Blood Count 4.57 10^3/uL (3.29-11.43)
[2022-12-25 11:35] LABS: Alanine Aminotransferase 14 U/L (0-33); Albumin Level 4.4 g/dL (3.5-5.2); Alkaline Phosphatase 75 U/L (35-105); Anion Gap 13.2 (5-19); Aspartate Amino Transferase 17 U/L (0-32); Blood Urea Nitrogen 15 mg/dL (8-23); Carbon Dioxide 28 mmol/L (22-29); Chloride 105 mmol/L (98-107); Globulin 2.3 g/dL (1.3-4.6); Glomerular Filtration Rate 71.5 mL/min (90-130); Glucose 129 mg/dL (65-115); Osmolality Calculated 297 mOsm/kg (285-295); Potassium 4.2 mmol/L (3.5-5.1); Sodium 142 mmol/L (136-145); Total Bilirubin 0.5 mg/dL (0.15-1.2); Total Protein 6.7 g/dL (6.6-8.7)
== END 2022-12-29 23:59 | disposition home or self-care (01) ==
PROVIDERS: Nurse Practitioner Family; PCP Internal Medicine; Visit Provider Internal Medicine Medical Oncology
DX: Z17.0 Estrogen receptor positive status [ER+] (principal); R53.0 Neoplastic (malignant) related fatigue; R61 Generalized hyperhidrosis; F41.9 Anxiety disorder, unspecified; G47.00 Insomnia, unspecified; C50.412 Malignant neoplasm of upper-outer quadrant of left female breast
CPT/HCPCS: 36415; 80053; 85025; 99214

== ENCOUNTER 2023-01-15 09:05 | Outpatient (CLI) | payer MEDICARE, SELFPAY ==
--- NOTE | 2023-01-15 09:30 | CT_ITS ---
WS: [id number] CT CHEST TECHNIQUE: Contrast enhanced CT of the chest with coronal and sagittal reformatted images. CLINICAL INFORMATION: bone pain COMPARISON: None. DLP: 425.[address] scans at [facility] use at least one of these dose optimization techniques: automated e xposure control; mA and/or kV adjustment per patient size (includes targeted exams where dose is matc hed to clinical indication); or iterative reconstruction. FINDINGS: Mild chronic emphysematous changes. No acute pulmonary infiltrates. Pleural parenchymal scarring LEFT upper lobe at the level of the lumpectomy with pleural parenchymal opacity measuring 1.6 x 1.0 cm. T his may be due to prior radiation therapy but indeterminate. Recommend further evaluation with PET/CT to assess activity versus short interval follow-up. Postoperative changes lumpectomy LEFT breast with surgical clips. No axillary lymphadenopathy. Normal caliber thoracic aorta. Normal caliber thoracic aorta. Aortic calcification. Small LEFT thyroid nodu le measuring 7 mm Diffuse fatty filtration of the liver. Low-attenuation lesion likely representing hepatic cyst measur ing 8 mm. Normal portal vein and splenic vein. Adrenal glands are normal. Splenic granulomas. Small e sophageal hernia. Cholelithiasis. Moderate thoracic kyphosis. Thoracic curve convex LEFT. Schmorl's nodes in the lower thoracic spine. No visualized focal bony lesions. IMPRESSION: 1. Prior postoperative changes LEFT lumpectomy with surgical clips in the LEFT breast. 2. Pleural-parenchymal scarring LEFT upper lobe at the level of the lumpectomy may represent fibrosi s from radiation therapy. Recommend further evaluation with PET/CT to evaluate FDG activity versus 3- month follow-up. No recent chest imaging 3. Mild chronic emphysematous changes. 4. No mediastinal hilar lymphadenopathy. 5. Small esophageal hernia. 6. Cholelithiasis. 7. No focal bony lesions visualized. Bone scan could be performed for better sensitivity.
[2023-01-15] MEDS: iohexol 350 mg/mL 500 mL Btl (per mL) IV (09:50)
== END 2023-01-15 09:06 | disposition home or self-care (01) ==
LOC: RAD 09:05
PROVIDERS: PCP Internal Medicine; Visit Provider Nurse Practitioner Family
DX: M89.8X9 Other specified disorders of bone, unspecified site (principal); C50.412 Malignant neoplasm of upper-outer quadrant of left female breast; Z98.890 Other specified postprocedural states; R91.8 Other nonspecific abnormal finding of lung field; J43.9 Emphysema, unspecified; K44.9 Diaphragmatic hernia without obstruction or gangrene; K80.20 Calculus of gallbladder without cholecystitis without obstruction
CPT/HCPCS: 71260; Q9967

== ENCOUNTER 2023-06-24 12:19 | Oncology outpatient (recurring) (ONCR) | payer MEDICARE, SELFPAY ==
[2023-06-24 13:00] LABS: Basophils # 0.1 10^3/uL (0.0-0.1); Basophils % 1.1 %; Eosinophils # 0.1 10^3/uL (0.0-0.8); Eosinophils % 1.6 %; Hematocrit 41.5 % (36-47); Lymphocytes % 17.8 %; Mean Corpuscular Hemoglobin 29.4 pg (27-33); Mean Corpuscular Volume 91.6 fl (85-98); Mean Platelet Volume 10.8 fL (7.4-10.4); Monocytes # 0.3 10^3/uL (0.2-0.9); Monocytes % 5.6 %; Neutrophils # 4.04 10^3/uL (1.8-7.7); Neutrophils % 73.5 %; Nucleated Red Blood Cells % 0 %; Platelet Count 244 10^3/cmm (157-399); Red Blood Count 4.53 10^6/uL (3.85-5.65); Red Cell Distribution Width 12.4 % (12.1-15.1)
[2023-06-24 13:18] LABS: Alanine Aminotransferase 15 U/L (0-33); Albumin Level 4.5 g/dL (3.5-5.2); Alkaline Phosphatase 81 U/L (35-105); Anion Gap 12.2 (5-19); Aspartate Amino Transferase 14 U/L (0-32); Blood Urea Nitrogen 12 mg/dL (8-23); Calcium 9.3 mg/dL (8.5-10.5); Carbon Dioxide 29 mmol/L (22-29); Chloride 104 mmol/L (98-107); Globulin 2.4 g/dL (1.3-4.6); Glomerular Filtration Rate 83.2 mL/min (90-130); Glucose 108 mg/dL (65-115); Osmolality Calculated 292 mOsm/kg (285-295); Potassium 4.2 mmol/L (3.5-5.1); Sodium 141 mmol/L (136-145); Total Bilirubin 0.4 mg/dL (0.15-1.2); Total Protein 6.9 g/dL (6.6-8.7)
== END 2023-06-30 23:59 | disposition home or self-care (01) ==
PROVIDERS: Nurse Practitioner Family; PCP Internal Medicine; Visit Provider Internal Medicine Medical Oncology
DX: C50.412 Malignant neoplasm of upper-outer quadrant of left female breast (principal); R91.8 Other nonspecific abnormal finding of lung field; Z79.899 Other long term (current) drug therapy
CPT/HCPCS: 36415; 80053; 85025; 99213

== ENCOUNTER 2024-07-15 10:51 | Oncology outpatient (recurring) (ONCR) | payer MEDICARE, SELFPAY ==
[2024-07-15 11:24] LABS: Basophils # 0.1 10^3/uL (0.0-0.1); Basophils % 1.1 %; Eosinophils # 0.1 10^3/uL (0.0-0.8); Eosinophils % 1.9 %; Hematocrit 36.5 % (36-47); Lymphocytes % 18.2 %; Mean Corpuscular HGB Conc 33.4 g/dL (30-55); Mean Corpuscular Hemoglobin 29.8 pg (27-33); Mean Platelet Volume 11.2 fL (7.4-10.4); Monocytes # 0.3 10^3/uL (0.2-0.9); Neutrophils # 4.11 10^3/uL (1.8-7.7); Neutrophils % 72.4 %; Nucleated Red Blood Cells % 0 %; Platelet Count 220 10^3/cmm (157-399); Red Cell Distribution Width 12.3 % (12.1-15.1); White Blood Count 5.67 10^3/uL (3.29-11.43)
[2024-07-15 11:47] LABS: Alanine Aminotransferase 10 U/L (0-33); Albumin Level 4.5 g/dL (3.5-5.2); Alkaline Phosphatase 69 U/L (35-105); Aspartate Amino Transferase 15 U/L (0-32); Blood Urea Nitrogen 17 mg/dL (8-23); Calcium 9.2 mg/dL (8.5-10.5); Carbon Dioxide 25 mmol/L (22-29); Chloride 103 mmol/L (98-107); Globulin 2.4 g/dL (1.3-4.6); Glomerular Filtration Rate 62.1 mL/min (90-130); Glucose 118 mg/dL (65-115); Osmolality Calculated 293 mOsm/kg (285-295); Sodium 140 mmol/L (136-145); Total Bilirubin 0.5 mg/dL (0.15-1.2); Total Protein 6.9 g/dL (6.6-8.7)
[2024-07-15 11:53] LABS: Anion Gap 16.1 (5-19); Potassium 4.1 mmol/L (3.5-5.1)
== END 2024-07-29 23:59 | disposition home or self-care (01) ==
PROVIDERS: Nurse Practitioner; PCP Internal Medicine; Visit Provider Internal Medicine Medical Oncology
DX: Z08 Encounter for follow-up examination after completed treatment for malignant neoplasm (principal); Z85.3 Personal history of malignant neoplasm of breast; G89.29 Other chronic pain; F41.8 Other specified anxiety disorders; R53.83 Other fatigue; R23.2 Flushing; Z92.3 Personal history of irradiation; Z87.891 Personal history of nicotine dependence; Z92.23 Personal history of estrogen therapy
CPT/HCPCS: 36415; 80053; 85025; 99214